=== PATIENT | female | born 1960 | race Caucasian/White ===

== ENCOUNTER 2019-08-09 19:29 | Inpatient (IN) | payer OTHER, SELFPAY ==
[2019-08-09] VITALS (29 sets, daily range): BP systolic 99–166; BP diastolic 65–101; PULSE 90–108; RESP 15–36; TEMP 36.6; O2SAT 88–100; BMI 28.3
--- NOTE | 2019-08-09 19:35 | XR_ITS ---
WS: [id number] PORTABLE CHEST HISTORY: Dyspnea COMPARISON: 09/13/2008 Lungs are clear and well expanded. No pleural effusion or pneumothorax. Cardiac size: Normal. Mediastinum/Aorta: Normal mediastinum. Mild RIGHT convex curvature thoracolumbar junction. XR/XR chest 1V portable [id number] IMPRESSION: Unremarkable portable chest.
--- NOTE | 2019-08-09 19:37 | ECG_ITS ---
Measurements Intervals [place] Rate: 94 P: 83 MO: 168 QRS: 72 QRSD: 82 T: 72 QT: 418 QTc: 523 SINUS RHYTHM VOLTAGE CRITERIA FOR LVH [MEETS CRITERIA IN ONE OF: R(aVL), S(V1), R(V5), R (V5/V6)+S(V1)] NONSPECIFIC T-WAVE ABNORMALITY PROLONGED QT INTERVAL Compared to ECG 08/09/2019 19:49:10 Prolonged QT interval now present T-wave abnormality still present Electronically Signed On 08-11-2019 14:50:21 CDT by Parag Carrillo M.D. [id number]
--- NOTE | 2019-08-09 19:44 | W.ED.GENADLT ---
HPI - General Adult General: Chief complaint: Upper Respiratory Infection Stated complaint: resp.distress Time Seen by Provider: 08/09/19 19:32 Source: EMS Mode of arrival: EMS Limitations: no limitations History of Present Illness: HPI narrative: Blayne is a 59-year-old female who comes in by EMS with a report of cough and increased shortness of breath. Symptoms have been going on for the past 2 to 3 days. Patient was noted by EMS to be extremely tachypneic with a respiratory rate in the 60s. She was given Ativan, nebulizer and Solu-Medrol and she is markedly better. She did complain of bilateral tingling in her upper extremities with this. That sensation has resolved. Patient does describe chest tightness but does not describe any other cardiac related findings such as radiation of her symptoms, diaphoresis, nausea or vomiting. Patient states she has increased sputum production and color change to her sputum. She denies any fever. COVID screening was negative. Otherwise not tried anything for this at home but the nebulizer did help in route. Associated symptoms: Reports chest pain; Deny confusion, diaphoresis, headache(s), malaise, nausea, rash, palpitations, syncope or vomiting Review of Systems Const: Denies: fever(s), chills, body aches, fatigue, malaise or diaphoresis Eyes: Denies: change in vision, blurry vision, blind spots or photophobia ENMT: Denies: throat pain, odynophagia, hoarseness, swelling of lips/tongue, ear or mastoid pain, ear discharge, change in hearing or nasal discharge Card: Reports: chest pain; Denies: palpitations, irregular heart rhythm, edema, lightheadedness, syncope, pre-syncope, dyspnea on exertion or orthopnea Resp: Reports: productive cough and wheezing; Denies: non-productive cough, hemoptysis or chest congestion GI: Denies: abdominal pain, nausea, vomiting, hematemesis, coffee ground emesis, heartburn, diarrhea, constipation, GI cramping, hematochezia or melena : Denies: flank pain, dysuria, urinary frequency, urinary urgency or hematuria Musc: Denies: neck pain, back pain, extremity pain, extremity swelling, joint pain, joint swelling, joint redness, joint warmth or joint stiffness Skin/Breast: Denies: rash, pruritus, erythema, skin tenderness or jaundice Neuro: Denies: headache(s), numbness in extremities, weakness in extremities, sensory changes, lack of coordination, difficulty walking, dizziness, vertigo, confusion or Slurred speech present Fabian/Lymph: Denies: easy bruising, easy bleeding, petechiae, purpura or enlarged lymph nodes All/Imm: Denies: urticaria, throat swelling, tongue swelling, facial swelling or acute wheezing PFSH ED PFSH: Medical History COPD (chronic obstructive pulmonary disease) Gastroenteritis GERD (gastroesophageal reflux disease) Hypertension Smoker Surgical History History of carpal tunnel surgery Family History (Updated 08/09/19 @ 23:38 by Tk Morrison MD) Other Hypertension Denies family history of Lung disease Social History (Updated 08/09/19 @ 23:38 by Tk Morrison MD) Smoking and tobacco status: heavy tobacco smoker cigarettes [ Other cigarette details: Half pack a day for last 30 years ] Alcohol intake: current Alcohol type: beer Alcohol use comment: 3 to 4 cans a day Substance/Drug Use: never Household members: family Housing: House Physical Exam Const: COMMON NORMALS: no acute distress, patient oriented x3, no limitations, healthy appearing and well nourished GENERAL APPEARANCE: cooperative, well kempt and well developed HENMT: COMMON NORMALS: normocephalic, atraumatic, external ears normal, EAC's normal and Normal external nose present HEAD & SCALP: normal to inspection, normocephalic and atraumatic FACE & SINUS: normal facial exam and face symmetric NOSE: Normal external nose present and Normal nares present EXTERNAL EAR: Yes external ears normal EXTERNAL AUDITORY CANAL: EAC's normal MOUTH: Normal oral and palatal mucosa present, lip normal and tongue normal Eye: COMMON NORMALS: Equal, round and reactive pupils present and conjunctivae normal GENERAL EYE: appearance normal, both eyes and all related structures ALIGNMENT: Yes alignment normal PERIORBITAL: periorbital findings normal EYELID: eyelids normal CONJUNCTIVA: Yes conjunctivae normal SCLERA: sclerae normal PUPIL: Yes Equal, round and reactive pupils present Neck/C-Spine: COMMON NORMALS: full ROM, no lymphadenopathy, supple, no meningeal signs and no JVD GENERAL: Yes normal visual inspection and Yes trachea midline Chest: COMMONS NORMALS: normal inspection of the chest and normal palpation of entire chest wall Resp: COMMON NORMALS: No retractions and No use of accessory muscles EFFORT & INSPECTION: Yes symmetric chest movement, Yes labored and Yes grunting AUSCULTATION: no crackles, no rales, rhonchi and wheezes Cardio: COMMON NORMALS: no JVD, regular rate, regular rhythm, S1 normal heart sound present and S2 normal heart sound present RATE: regular rate RHYTHM: regular rhythm HEART SOUNDS: S1 normal heart sound present, S2 normal heart sound present, no click, no gallops, no murmurs, no rubs and abnormal split S2 GI: COMMON NORMALS: Soft to palpation and No hepatosplenomegaly present PALPATION: Yes Soft to palpation, No Tenderness to palpation present (GI), No Guarding due to palpation present (GI), No Rigid due to palpation, Yes No hepatosplenomegaly present, No Hernia present, No Palpable mass present and No Pulsatile mass present : COMMON NORMALS: Yes no CVA tenderness BLADDER/KIDNEY EXAM: Yes no CVA tenderness EXTERNAL FEMALE EXAM: No Hernia present Back/Pelvis: COMMON NORMALS: no CVA tenderness, thoracic and lumbar spine normal to inspection, no thoracic nor lumbar tenderness and thoraco-lumbar ROM normal Extremity: COMMON NORMALS: normal to inspection, full ROM, capillary refill normal, no joint enlargement, no clubbing, cyanosis or edema and no calf tenderness Neuro: COMMON NORMALS: patient oriented x3, CN's II-XII intact bilaterally, moves all extremities, no focal motor deficits and no sensory deficits noted MENINGEAL SIGNS: Yes no meningeal signs SPEECH: speech normal Psych: COMMON NORMALS: mental status grossly normal, Normal thought process present, cooperative, normal affect, speech normal and activity/motor behavior normal APPEARANCE: Yes well kempt SPEECH: Yes normal speech THOUGHT PROCESS: Normal thought process present Skin: COMMON NORMALS: no rashes or lesions noted, turgor normal, no jaundice, no petechiae and no mottling GENERAL SKIN EXAM: no rashes or lesions noted and turgor normal Course Vital Signs: Vital signs: Vital Signs Temperature 97.7 F 08/10/19 00:30 Pulse Rate 109 H 08/10/19 00:30 Respiratory Rate 20 H 08/10/19 00:30 Blood Pressure 170/92 08/10/19 00:30 Pulse Oximetry 94 06/12/20 00:30 MDM - General Adult MDM Narrative: Medical decision making narrative: Latesha is a nice 59-year-old female who comes in after having what was believed to be a COPD exacerbation. She had a markedly increased respiratory rate and was given Ativan, DuoNeb and Solu-Medrol by EMS. As time is gone on here the patient's become more more somnolent. Repeat ABG shows acidosis but she is not particularly hypercapnic. I believe this is likely secondary to the Ativan. Nonetheless I do not think she is safe for discharge at this point. I have reviewed the case in full with Dr. Morrison and he agrees to come and evaluate the patient. We will add a head CT and a CTA of the chest per his request. The patient did not respond to Narcan given IV. Patient was ultimately admitted by Dr. Morrison. CTA of her chest and her head were normal. Patient did not smell of alcohol but her blood alcohol level did come back significantly elevated. I believe the combination of the alcohol and Ativan caused the patient's increased somnolence. Lab Data: Labs: Lab Results 08/09/19 08/09/19 08/09/19 Range/Units 19:48 19:48 19:48 WBC 10.3 H (4.0-10.0) 10^3/ uL RBC 4.25 (4.1-5.3) 10^6/u L Hgb 13.1 (11.5-15.3) g/dL Hct 39.3 (37.0-47.0) % MCV 92.5 (81-99) fL MCH 30.8 (28.0-34.0) pg MCHC 33.3 (30.0-36.0) g/dL RDW 11.9 L (12.1-15.1) % Plt Count 224 (130-400) 10^3/c mm MPV 10.4 (7.4-10.4) fL Neut % (Auto) 61.5 % Lymph % (Auto) 27.2 % [place] % (Auto) 8.1 % Eos % (Auto) 2.6 % Baso % (Auto) 0.3 % Neut # (Auto) 6.3 (1.8-7.7) 10^3/u L Lymph # (Auto) 2.8 (0.8-4.8) 10^3/u L [place] # (Auto) 0.8 (0.2-0.9) 10^3/u L Eos # (Auto) 0.3 (0.0-0.8) 10^3/u L Baso # (Auto) 0.0 (0.0-0.1) 10^3/u L Nucleated RBC % (a uto) 0 % Nucleated RBCs # 0.0 /100WBC Specimen Type Sample Site ABG pH (7.35-7.45) ABG pCO2 (35-45) mmHg ABG pO2 (80.0-100.0) mmH g ABG HCO3 (22-26) mmol/L ABG Base Excess (-2.0-2.0) mmol/ L Beck Test Hematocrit (37-47) % O2 Delivery Device FiO2 % Account Services Coordinator ID Sodium 129 L (136-145) mmol/L Potassium 3.6 (3.5-5.1) mmol/L Chloride 92 L (98-107) mmol/L Carbon Dioxide 20 L (22-29) mmol/L Anion Gap 20.6 H (5-19) BUN 9 (6-20) mg/dL Creatinine 0.5 (0.5-0.9) mg/dL GFR Calculation 126.3 (90-130) mL/min Glucose 93 (65-115) mg/dL Calculated Osmolal ity 264 L (285-295) mOsm/k g Lactic Acid 2.5 H (0.5-2.2) mmol/L Calcium 9.0 (8.5-10.5) mg/dL Magnesium 1.9 (1.7-2.3) mg/dL Total Bilirubin 0.5 (0.15-1.2) mg/dL AST 23 (0-32) U/L ALT 24 (0-33) U/L Alkaline Phosphata se 125 H (35-105) IU/L Troponin T Baselin e (0-10) ng/L Troponin T 120 Min [place] (0-10) ng/L Delta Troponin T (0-10) ABS# NT-Pro-B Natriuret Pep 328 H (0-125) pg/mL Total Protein 6.9 (6.6-8.7) g/dL Albumin 4.6 (3.5-5.2) g/dL Globulin 2.3 (1.3-4.6) g/dL TSH (0.27-4.20) uIU/ mL Urine Color (Yellow) Urine Appearance (CLEAR) Urine pH (5-7) Ur Specific Gravit y (1.005-1.030) Urine Protein (Negative) Urine Glucose (UA) (Normal) Urine Ketones (Negative) Urine Blood (Negative) Urine Nitrate (Negative) Urine Bilirubin (NEGATIVE) Urine Urobilinogen (Negative) mg/dL Ur Leukocyte Elvira ase (Negative) Urine RBC (0-2) /hpf Urine WBC (0-5) /hpf Ur Squamous Epith Cells (0-5) Urine Bacteria (NONE) Ethyl Alcohol (0-10) mg/dL 08/09/19 08/09/19 08/09/19 Range/Units 19:48 19:48 19:48 WBC (4.0-10.0) 10^3/ uL RBC (4.1-5.3) 10^6/u L Hgb (11.5-15.3) g/dL Hct (37.0-47.0) % MCV (81-99) fL MCH (28.0-34.0) pg MCHC (30.0-36.0) g/dL RDW (12.1-15.1) % Plt Count (130-400) 10^3/c mm MPV (7.4-10.4) fL Neut % (Auto) % Lymph % (Auto) % [place] % (Auto) % Eos % (Auto) % Baso % (Auto) % Neut # (Auto) (1.8-7.7) 10^3/u L Lymph # (Auto) (0.8-4.8) 10^3/u L [place] # (Auto) (0.2-0.9) 10^3/u L Eos # (Auto) (0.0-0.8) 10^3/u L Baso # (Auto) (0.0-0.1) 10^3/u L Nucleated RBC % (a uto) % Nucleated RBCs # /100WBC Specimen Type Sample Site ABG pH (7.35-7.45) ABG pCO2 (35-45) mmHg ABG pO2 (80.0-100.0) mmH g ABG HCO3 (22-26) mmol/L ABG Base Excess (-2.0-2.0) mmol/ L Beck Test Hematocrit (37-47) % O2 Delivery Device FiO2 % Account Services Coordinator ID Sodium (136-145) mmol/L Potassium (3.5-5.1) mmol/L Chloride (98-107) mmol/L Carbon Dioxide (22-29) mmol/L Anion Gap (5-19) BUN (6-20) mg/dL Creatinine (0.5-0.9) mg/dL GFR Calculation (90-130) mL/min Glucose (65-115) mg/dL Calculated Osmolal ity (285-295) mOsm/k g Lactic Acid (0.5-2.2) mmol/L Calcium (8.5-10.5) mg/dL Magnesium (1.7-2.3) mg/dL Total Bilirubin (0.15-1.2) mg/dL AST (0-32) U/L ALT (0-33) U/L Alkaline Phosphata se (35-105) IU/L Troponin T Baselin e 28 H (0-10) ng/L Troponin T 120 Min [place] (0-10) ng/L Delta Troponin T (0-10) ABS# NT-Pro-B Natriuret Pep (0-125) pg/mL Total Protein (6.6-8.7) g/dL Albumin (3.5-5.2) g/dL Globulin (1.3-4.6) g/dL TSH 1.53 (0.27-4.20) uIU/ mL Urine Color (Yellow) Urine Appearance (CLEAR) Urine pH (5-7) Ur Specific Gravit y (1.005-1.030) Urine Protein (Negative) Urine Glucose (UA) (Normal) Urine Ketones (Negative) Urine Blood (Negative) Urine Nitrate (Negative) Urine Bilirubin (NEGATIVE) Urine Urobilinogen (Negative) mg/dL Ur Leukocyte Elvira ase (Negative) Urine RBC (0-2) /hpf Urine WBC (0-5) /hpf Ur Squamous Epith Cells (0-5) Urine Bacteria (NONE) Ethyl Alcohol 216 H (0-10) mg/dL 08/09/19 08/09/19 08/09/19 Range/Units 20:00 21:00 21:37 WBC (4.0-10.0) 10^3/ uL RBC (4.1-5.3) 10^6/u L Hgb (11.5-15.3) g/dL Hct (37.0-47.0) % MCV (81-99) fL MCH (28.0-34.0) pg MCHC (30.0-36.0) g/dL RDW (12.1-15.1) % Plt Count (130-400) 10^3/c mm MPV (7.4-10.4) fL Neut % (Auto) % Lymph % (Auto) % [place] % (Auto) % Eos % (Auto) % Baso % (Auto) % Neut # (Auto) (1.8-7.7) 10^3/u L Lymph # (Auto) (0.8-4.8) 10^3/u L [place] # (Auto) (0.2-0.9) 10^3/u L Eos # (Auto) (0.0-0.8) 10^3/u L Baso # (Auto) (0.0-0.1) 10^3/u L Nucleated RBC % (a uto) % Nucleated RBCs # /100WBC Specimen Type Arterial Sample Site Radial, right ABG pH 7.36 (7.35-7.45) ABG pCO2 37.3 (35-45) mmHg ABG pO2 133.0 H (80.0-100.0) mmH g ABG HCO3 21.0 L (22-26) mmol/L ABG Base Excess -4.0 L (-2.0-2.0) mmol/ L Beck Test Pos Hematocrit 39.9 (37-47) % O2 Delivery Device None FiO2 21.0 % Account Services Coordinator ID [email or web address] Sodium (136-145) mmol/L Potassium (3.5-5.1) mmol/L Chloride (98-107) mmol/L Carbon Dioxide (22-29) mmol/L Anion Gap (5-19) BUN (6-20) mg/dL Creatinine (0.5-0.9) mg/dL GFR Calculation (90-130) mL/min Glucose (65-115) mg/dL Calculated Osmolal ity (285-295) mOsm/k g Lactic Acid (0.5-2.2) mmol/L Calcium (8.5-10.5) mg/dL Magnesium (1.7-2.3) mg/dL Total Bilirubin (0.15-1.2) mg/dL AST (0-32) U/L ALT (0-33) U/L Alkaline Phosphata se (35-105) IU/L Troponin T Baselin e (0-10) ng/L Troponin T 120 Min [place] 25.10 H (0-10) ng/L Delta Troponin T -2.90 L (0-10) ABS# NT-Pro-B Natriuret Pep (0-125) pg/mL Total Protein (6.6-8.7) g/dL Albumin (3.5-5.2) g/dL Globulin (1.3-4.6) g/dL TSH (0.27-4.20) uIU/ mL Urine Color Straw (Yellow) Urine Appearance Clear (CLEAR) Urine pH 5 (5-7) Ur Specific Gravit y 1.005 (1.005-1.030) Urine Protein Neg (Negative) Urine Glucose (UA) Norm (Normal) Urine Ketones Negative (Negative) Urine Blood Neg (Negative) Urine Nitrate Negative (Negative) Urine Bilirubin Neg (NEGATIVE) Urine Urobilinogen Norm (Negative) mg/dL Ur Leukocyte Elvira ase Negative (Negative) Urine RBC None (0-2) /hpf Urine WBC None (0-5) /hpf Ur Squamous Epith Cells 0-4 H (0-5) Urine Bacteria Trace (NONE) Ethyl Alcohol (0-10) mg/dL 08/09/19 Range/Units 22:05 WBC (4.0-10.0) 10^3/ uL RBC (4.1-5.3) 10^6/u L Hgb (11.5-15.3) g/dL Hct (37.0-47.0) % MCV (81-99) fL MCH (28.0-34.0) pg MCHC (30.0-36.0) g/dL RDW (12.1-15.1) % Plt Count (130-400) 10^3/c mm MPV (7.4-10.4) fL Neut % (Auto) % Lymph % (Auto) % [place] % (Auto) % Eos % (Auto) % Baso % (Auto) % Neut # (Auto) (1.8-7.7) 10^3/u L Lymph # (Auto) (0.8-4.8) 10^3/u L [place] # (Auto) (0.2-0.9) 10^3/u L Eos # (Auto) (0.0-0.8) 10^3/u L Baso # (Auto) (0.0-0.1) 10^3/u L Nucleated RBC % (a uto) % Nucleated RBCs # /100WBC Specimen Type Arterial Sample Site Brachial, left ABG pH 7.34 L (7.35-7.45) ABG pCO2 38.3 (35-45) mmHg ABG pO2 70.2 L (80.0-100.0) mmH g ABG HCO3 20.4 L (22-26) mmol/L ABG Base Excess -5.0 L (-2.0-2.0) mmol/ L Beck Test Pos Hematocrit 39.3 (37-47) % O2 Delivery Device None FiO2 21.0 % Account Services Coordinator ID [email or web address] Sodium (136-145) mmol/L Potassium (3.5-5.1) mmol/L Chloride (98-107) mmol/L Carbon Dioxide (22-29) mmol/L Anion Gap (5-19) BUN (6-20) mg/dL Creatinine (0.5-0.9) mg/dL GFR Calculation (90-130) mL/min Glucose (65-115) mg/dL Calculated Osmolal ity (285-295) mOsm/k g Lactic Acid (0.5-2.2) mmol/L Calcium (8.5-10.5) mg/dL Magnesium (1.7-2.3) mg/dL Total Bilirubin (0.15-1.2) mg/dL AST (0-32) U/L ALT (0-33) U/L Alkaline Phosphata se (35-105) IU/L Troponin T Baselin e (0-10) ng/L Troponin T 120 Min [place] (0-10) ng/L Delta Troponin T (0-10) ABS# NT-Pro-B Natriuret Pep (0-125) pg/mL Total Protein (6.6-8.7) g/dL Albumin (3.5-5.2) g/dL Globulin (1.3-4.6) g/dL TSH (0.27-4.20) uIU/ mL Urine Color (Yellow) Urine Appearance (CLEAR) Urine pH (5-7) Ur Specific Gravit y (1.005-1.030) Urine Protein (Negative) Urine Glucose (UA) (Normal) Urine Ketones (Negative) Urine Blood (Negative) Urine Nitrate (Negative) Urine Bilirubin (NEGATIVE) Urine Urobilinogen (Negative) mg/dL Ur Leukocyte Elvira ase (Negative) Urine RBC (0-2) /hpf Urine WBC (0-5) /hpf Ur Squamous Epith Cells (0-5) Urine Bacteria (NONE) Ethyl Alcohol (0-10) mg/dL Imaging Data^: CXR: My impression: No acute cardiopulmonary findings. EKG Data^: EKG 1: Attestation: I personally reviewed and interpreted this EKG as follows: EKG interpretation date: 08/09/19 EKG interpretation time: 19:49 Interpretation: Normal sinus rhythm at 94 beats a minute, no blocks, normal intervals, normal axis, LVH, no acute ST or T wave changes. Poor R wave progression. Computer generated interpretation: Head CT 08/09/19 22:21 IMPRESSION: Negative for intracranial hemorrhage or mass effect Radiation Dose CTDIVOL = (mGy): DLP = 836.28 (mGy-cm) Chest CTA 08/09/19 22:35 IMPRESSION: 1. Question of mild bronchitis 2. No acute infiltrates 3. No evidence of pulmonary embolism 4. Possible gastritis. Radiation Dose CTDIVOL = (mGy): DLP = 583.84 (mGy-cm) Discharge Plan Discharge Patient Disposition: Placed in Observation Admit Provider: Tk Morrison Clinical Impression: Acute alteration in mental status, Acute exacerbation of chronic obstructive pulmonary disease Condition: Stable Discharge Date/Time: 08/10/19 00:24 Coding Level of Care Code ED Frog Catcher for Chg Fwd Exam Comprehensive
[2019-08-09 19:54] LABS: Basophils % 0.3 %; Eosinophils # 0.3 10^3/uL (0.0-0.8); Eosinophils % 2.6 %; Hematocrit 39.3 % (37.0-47.0); Hemoglobin 13.1 g/dL (11.5-15.3); Lymphocytes # 2.8 10^3/uL (0.8-4.8); Lymphocytes % 27.2 %; Mean Corpuscular HGB Conc 33.3 g/dL (30.0-36.0); Mean Corpuscular Hemoglobin 30.8 pg (28.0-34.0); Mean Corpuscular Volume 92.5 fL (81-99); Mean Platelet Volume 10.4 fL (7.4-10.4); Monocytes # 0.8 10^3/uL (0.2-0.9); Monocytes % 8.1 %; Neutrophils # 6.3 10^3/uL (1.8-7.7); Neutrophils % 61.5 %; Nucleated Red Blood Cells % 0 %; Platelet Count 224 10^3/cmm (130-400); Red Blood Count 4.25 10^6/uL (4.1-5.3); Red Cell Distribution Width 11.9 % (12.1-15.1); White Blood Count 10.3 10^3/uL (4.0-10.0)
[2019-08-09] MEDS: ipratropium-albuterol 3 mL Neb 9 ML INHALATION (19:58)
[2019-08-09 20:10] LABS: ABG PCO2 37.3 mmHg (35-45); ABG PH Result 7.36 (7.35-7.45); Arterial Blood Gas Hematocrit 39.9 % (37-47); Blood Gas Allen Test Pos; Blood Gas Sample Site Radial, right; Blood Gas Sample Type Arterial
[2019-08-09 20:13] LABS: Lactic Sepsis W/Reflex 2.5 mmol/L (0.5-2.2)
[2019-08-09 20:25] LABS: Alanine Aminotransferase 24 U/L (0-33); Albumin Level 4.6 g/dL (3.5-5.2); Alkaline Phosphatase 125 IU/L (35-105); Anion Gap 20.6 (5-19); Blood Urea Nitrogen 9 mg/dL (6-20); Carbon Dioxide 20 mmol/L (22-29); Chloride 92 mmol/L (98-107); Globulin 2.3 g/dL (1.3-4.6); Glomerular Filtration Rate 126.3 mL/min (90-130); Glucose 93 mg/dL (65-115); Magnesium 1.9 mg/dL (1.7-2.3); NT Pro B Type Natriuretic Pept 328 pg/mL (0-125); Osmolality Calculated 264 mOsm/kg (285-295); Potassium 3.6 mmol/L (3.5-5.1); Sodium 129 mmol/L (136-145); Total Bilirubin 0.5 mg/dL (0.15-1.2); Total Protein 6.9 g/dL (6.6-8.7)
[2019-08-09 20:28] LABS: Aspartate Amino Transferase 23 U/L (0-32)
[2019-08-09 20:42] LABS: Troponin(5th) Baseline 28 ng/L (0-10)
[2019-08-09 21:22] LABS: Bilirubin Urine Neg (NEGATIVE); Blood Urine Neg (Negative); Glucose Urine UA Norm (Normal); Ketones Urine Negative (Negative); Leukocyte Esterase Urine Negative (Negative); Nitrate Urine Negative (Negative); Protein Urine Neg (Negative); Specific Gravity, Urine 1.005 (1.005-1.030); Urine Appearance Clear (CLEAR); Urine Color Straw (Yellow); Urobilinogen Urine Norm (Negative); pH Urine 5 (5-7)
[2019-08-09 21:33] LABS: Bacteria Urine TRACE; Squamous Epithelial Cell Urine 0-4 (0-5)
[2019-08-09 21:34] LABS: Add Urine Culture? No
--- NOTE | 2019-08-09 21:37 | ECG_ITS ---
Measurements Intervals [place] Rate: 94 P: 78 [place]: 160 QRS: 72 QRSD: 84 T: 53 QT: 377 QTc: 474 SINUS RHYTHM MODERATE VOLTAGE CRITERIA FOR LVH, CONSIDER NORMAL VARIANT [MEETS CRITERIA IN ONE OF: R(aVL), S(V1), R(V5), R(V5/V6)+S(V1)] NONSPECIFIC T-WAVE ABNORMALITY No previous ECG available for comparison Electronically Signed On 08-09-2019 21:05:23 CDT by Parag Carrillo M.D. [id number]
[2019-08-09 22:17] LABS: ABG PCO2 38.3 mmHg (35-45); ABG PH Result 7.34 (7.35-7.45); Arterial Blood Gas Hematocrit 39.3 % (37-47); Blood Gas Allen Test Pos; Blood Gas Sample Site Brachial, left; Blood Gas Sample Type Arterial; HCO3 ABG 20.4 mmol/L (22-26); PO2 ABG 70.2 mmHg (80.0-100.0)
--- NOTE | 2019-08-09 22:21 | CTR_ITS ---
PROCEDURE INFORMATION: Exam: CT Head Without Contrast Exam date and time: 08/09/2019 10:54 PM Age: 59 years old Clinical indication: Altered mental status/memory loss; Additional info: AMS TECHNIQUE: Imaging protocol: Computed tomography of the head without contrast. Radiation optimization: All CT scans at this facility use at least one of these dose optimization techniques: automated exposure control; mA and/or kV adjustment per patient size (includes targeted exams where dose is matched to clinical indication); or iterative reconstruction. COMPARISON: No relevant prior studies available. RADIATION DOSE METRICS: Total DLP: 836.28 mGy-cm FINDINGS: Brain: Apparent bilateral thalamic chronic lacunar infarcts Ventricles: Normal. No ventriculomegaly. Bones/joints: Unremarkable. No acute fracture. Sinuses: Paranasal sinus partial opacification. Mastoid air cells: Visualized mastoid air cells are well aerated. Soft tissues: Unremarkable. CT/CT head wo con* [id number] IMPRESSION: Negative for intracranial hemorrhage or mass effect Radiation Dose CTDIVOL = (mGy): DLP = 836.28 (mGy-cm)
[2019-08-09] MEDS: naloxone 0.4 mg/ml SDV IVP (22:27)
--- NOTE | 2019-08-09 22:35 | CTR_ITS ---
PROCEDURE INFORMATION: Exam: CT Angiography Chest With Contrast Exam date and time: 08/09/2019 10:54 PM Age: 59 years old Clinical indication: Shortness of breath; Additional info: Dyspnea TECHNIQUE: Imaging protocol: Computed tomographic angiography of the chest with intravenous contrast. 3D rendering: MIP and/or 3D reconstructed images were created by the technologist. Radiation optimization: All CT scans at this facility use at least one of these dose optimization techniques: automated exposure control; mA and/or kV adjustment per patient size (includes targeted exams where dose is matched to clinical indication); or iterative reconstruction. Contrast material: OMNI 350; Contrast volume: 90 ml; Contrast route: 20G; COMPARISON: No relevant prior studies available. RADIATION DOSE METRICS: Total DLP: 583.84 mGy-cm FINDINGS: Pulmonary arteries: There is no evidence of filling defects within the pulmonary arterial circulation to suggest pulmonary embolism. Aorta: There is no aortic aneurysm or dissection. Lungs: No focal infiltrate is identified. Pleural space: Unremarkable. No pneumothorax. No pleural effusion. Heart: Unremarkable. No cardiomegaly. No pericardial effusion. Mediastinal space: A moderate hiatal hernia is present. Lymph nodes: Unremarkable. No enlarged lymph nodes. Stomach and bowel: There is moderate thickening of the gastric mucosa which could represent some nonspecific gastritis. Correlation with clinical findings is suggested. There is mild bronchial wall thickening of the central bronchi on both sides which may represent some bronchitis. Correlation with clinical findings is suggested. Bones/joints: Unremarkable. No acute fracture. Soft tissues: Unremarkable. CT/CT angio chest PE protcl [id number] IMPRESSION: 1. Question of mild bronchitis 2. No acute infiltrates 3. No evidence of pulmonary embolism 4. Possible gastritis. Radiation Dose CTDIVOL = (mGy): DLP = 583.84 (mGy-cm)
--- NOTE | 2019-08-09 22:36 | PM.HP ---
Providers/Chief Complaint Chief Complaint: resp.distress History of Present Illness Latesha Piper is a 59 year old female who carries a history of COPD secondary to cigarette smoking, GERD, hypertension came in with chief complaint of respiratory stress. Patient does not have established care with any PCP. She is stating that she was in her usual state of health until 2 to 3 weeks ago when she started experiencing intermittent diarrhea, she has not eaten from outside, no recent traveling or camping, she has not used any antibiotics, her diarrhea is intermittent, she has not spiked any fever at home, she has been feeling dehydrated. She was getting more lethargic, she was getting dyspnea on exertion she did not notice any orthopnea, PND, chest pain nausea or vomiting. She suffered from sinusitis and nasal congestion few weeks ago that resolved. Today she started experiencing shortness of breath at rest. There were audible wheezing, family called EMS, EMS gave her 1 mg of Ativan, 125 mg of Solu-Medrol, 1 dose of DuoNeb. She was tachypneic her resting rate was in 40s. By the time she came to the ER she was not tachypneic at all, she was drowsy, she was not really waking up to verbal commands, I ordered blood alcohol level which came high. Patient is stating that she recently quit smoking on last Tuesday, she drinks couple of cans of beer every night. At the time of my evaluation she has normal hemodynamics, she is arousable to verbal command and able to give me above-mentioned details. Her GCS is 15, alert oriented x3 Blood alcohol level 216, She just came back from CT room after getting CT head and CTA chest Blood gases showing normal blood gas without any decompensation Chest x-ray does not show any infiltrates Review of Systems Const: Reports: chills, body aches and fatigue; Denies: fever(s) Eyes: Denies: change in vision ENMT: Denies: throat pain Card: Denies: chest pain Resp: Reports: dyspnea and productive cough (Chronic sputum production white to yellow-green) GI: Reports: diarrhea; Denies: abdominal pain or nausea : Denies: flank pain or difficulty voiding Musc: Denies: neck pain Skin/Breast: Denies: rash Neuro: Denies: headache(s) Psych: Reports: sleeping more Endo: Denies: polyuria Fabian/Lymph: Denies: easy bruising All/Imm: Denies: urticaria Medications/Allergies Home Medications Medication Instructions Recorded Confirmed Last Taken Type albuterol sulfate 90 mcg/actuation 2 puff INHALATION Q6H PRN #8.5 gm 07/09/19 08/09/19 08/09/19 Rx aerosol inhaler aspirin [Aspirin Low Dose] 81 mg PO DAILY 08/09/19 08/09/19 08/09/19 History guaifenesin [Mucinex] 600 mg PO Q12H PRN 08/09/19 08/09/19 08/09/19 History ibuprofen 200 mg PO Q6H PRN 08/09/19 08/09/19 08/09/19 History Allergies Allergy/AdvReac Type Severity Reaction Status Date / Time No Known Allergies Allergy Verified 08/09/19 20:20 PFSH Acute PFSH: Medical History COPD (chronic obstructive pulmonary disease) Gastroenteritis GERD (gastroesophageal reflux disease) Hypertension Smoker Surgical History History of carpal tunnel surgery Family History (Updated 08/09/19 @ 23:38 by Tk Morrison MD) Other Hypertension Denies family history of Lung disease Social History (Updated 08/09/19 @ 23:38 by Tk Morrison MD) Smoking and tobacco status: heavy tobacco smoker cigarettes [ Other cigarette details: Half pack a day for last 30 years ] Alcohol intake: current Alcohol type: beer Alcohol use comment: 3 to 4 cans a day Substance/Drug Use: never Household members: family Housing: House Vitals/I&O/Wt Last Vital Signs Temp 97.8 F 08/09/19 19:30 Pulse 95 08/09/19 21:35 Resp 22 H 08/09/19 21:35 BP 110/73 08/09/19 21:35 Pulse Ox 91 08/09/19 21:35 Weight last 48 hrs Weight 63.503 kg Physical Exam Narrative: EXAM NARRATIVE: Head to toe examination Patient was arousable to verbal command initially She was very drowsy when I entered the room but woke up to painful stimuli and was very pleasant, alert oriented x3 GCS 15 able to give me above-mentioned detail S1, S2 no tachycardia She is not tachypneic, no active respiratory distress No active wheezing, good bilateral breath sounds Abdomen soft nontender nondistended bowel sound present No neurological deficit Skin does not show any sign ischemia gangrene ulcer Does not look dehydrated at all EOMI, PERRLA Data : 08/09/19 19:48 08/09/19 19:48 A&P Assessment and plan (1) Alcohol intoxication: Status: Acute (2) Acute alteration in mental status: Status: Acute (3) Hyponatremia: Status: Acute (4) Diarrhea: Status: Acute Additional A&P Information Altered mental status secondary to alcohol intoxication Thiamine folic acid No active respiratory distress Patient currently is awake alert GCS 15 able to protect airway No active restaurant distress She drinks beer every day COPD without active exacerbation Do not see any pneumonia on chest x-ray, no infiltrates, No active wheezing She only has albuterol inhaler at home, does not have a PCP establish She would need Lama and Laba combination on discharge Hyponatremia Patient is endorsing diarrhea for the last 2 to 3 weeks We will check C. difficile panel Serum and urine osmolarity, urine sodium level I believe this is secondary to dehydration, will start her on normal saline Full code VT prophylaxis Cardiac diet Attestations Medical Necessity Statement*: Anticipating discharge in less than 48 hours currently need overnight monitoring because of her altered mental status secondary to alcohol tox Acacian, Time Spent in Patient Care: (>than 50% of time spent in counselling and/or direct pt care on unit). 50 Coding Level of Care Code Acute Rail Switch Operator for Christian Enrique Diagnoses Alcohol intoxication F10.929 Acute alteration in mental status R41.82 Hyponatremia E87.1 Diarrhea R19.7
[2019-08-09 23:22] LABS: Alcohol Level 216 mg/dL (0-10)
[2019-08-09] MEDS: iohexol 350 mg/mL 100 mL Btl IV (23:27)
[2019-08-10] VITALS (20 sets, daily range): BP systolic 121–200; BP diastolic 76–129; PULSE 95–126; RESP 15–28; TEMP 36.2–37; O2SAT 92–97
[2019-08-10] MEDS: enoxaparin 40 mg/0.4 mL Syringe SUBCUT (00:49)
[2019-08-10] MEDS: sodium chloride 0.9% 1,000 ML 75 ML IV ×2 (00:49→13:15)
[2019-08-10 01:30] LABS: Thyroid Stimulating Hormone 1.53 uIU/mL (0.27-4.20)
--- NOTE | 2019-08-10 01:37 | ECG_ITS ---
Measurements Intervals [place] Rate: 109 P: 65 SD: 172 QRS: 51 QRSD: 82 T: 54 QT: 364 QTc: 491 SINUS TACHYCARDIA MODERATE VOLTAGE CRITERIA FOR LVH, CONSIDER NORMAL VARIANT [MEETS CRITERIA IN ONE OF: R(aVL), S(V1), R(V5), R(V5/V6)+S(V1)] POSSIBLE ANTERIOR MYOCARDIAL INFARCTION [30 ms Q WAVE IN V3/V4, OR R < 0.2 mV IN V4], OF INDETERMINATE AGE Compared to ECG 08/09/2019 19:49:10 Myocardial infarct finding now present Sinus rhythm no longer present T-wave abnormality no longer present Electronically Signed On 08-11-2019 15:17:29 CDT by Parag Carrillo M.D. [email or web address]
[2019-08-10] MEDS: ipratropium-albuterol 3 mL Neb INHALATION ×4 (05:13→20:40)
[2019-08-10 05:20] LABS: Hematocrit 38.7 % (37.0-47.0); Hemoglobin 13.1 g/dL (11.5-15.3); Lymphocytes # 0.4 10^3/uL (0.8-4.8); Lymphocytes % 7.3 %; Mean Corpuscular HGB Conc 33.9 g/dL (30.0-36.0); Mean Corpuscular Hemoglobin 31.4 pg (28.0-34.0); Mean Corpuscular Volume 92.8 fL (81-99); Mean Platelet Volume 10.8 fL (7.4-10.4); Monocytes % 0.8 %; Neutrophils # 4.5 10^3/uL (1.8-7.7); Neutrophils % 91.3 %; Nucleated Red Blood Cells % 0 %; Platelet Count 233 10^3/cmm (130-400); Red Blood Count 4.17 10^6/uL (4.1-5.3); White Blood Count 4.9 10^3/uL (4.0-10.0)
[2019-08-10 05:35] LABS: Blood Urea Nitrogen 6 mg/dL (6-20); Calcium 9.3 mg/dL (8.5-10.5); Carbon Dioxide 22 mmol/L (22-29); Chloride 100 mmol/L (98-107); Creatinine Clr Calc Pharmacy 151.8119; Glomerular Filtration Rate 163.4 mL/min (90-130); Glucose 145 mg/dL (65-115); Osmolality Calculated 278 mOsm/kg (285-295); Sodium 135 mmol/L (136-145)
[2019-08-10 06:24] LABS: Urine Random Sodium 22 mmol/L
--- NOTE | 2019-08-10 09:39 | PC.CHAP ---
Pastoral Care Encounter/Spiritual Assessment Type of Contact [] Declined oracle financials developer visit [] Patient/Family/Request visit [] Outpatient visit [] Follow-up visit [] Physician referral [] Code/Alert [x] Routine visit [] Staff referral [] Actively dying [] Patient sleeping [] Family support [] [] Out of room [] Palliative care [] [] Receiving care in room [] Pre-surgical visit [] Trauma [] Long length of stay [] ICU visit [] Other: Relational/Emotional Strength [] Patient feels connected with others/family/visitors/staff [] Distress [] Loneliness/isolation [] Abandonment Spirituality of Patient [] Person of [place] [] Attends Baptism of their [place] [] Believes in Prayer [] Reads Bible or Faith materials [] There are Spiritual issues to be addressed Weight Loss Sales Consultant Interventions [x] Prayer [] Active listening [] Non-anxious presence [] Spiritual/emotional support [] Crisis/trauma care [] Spiritual counseling [] Bereavement support [] Provided bereavement packet [] Provided Bible/devotional materials [] Provided toy/stuffed animal, coloring book to patient or family member [] Provided Communion [] Anointing/[place] [] Salvation [x] Completed spiritual assessment [] Other: Impact on Illness or Injury [] Angry [] Fearful [] Anxious [] Often cries [] Exhaustion [] Unable to work [] Unable to attend caodaism [] Unable to walk/stand [] Unable to read [] Unable to drive [] Unable to eat/drink [] Unable to sleep [] Unable to be with family [] Patient intubated [] Other: Summary Patient resting better. Breathing better Time spent with patient 10min
--- NOTE | 2019-08-10 10:06 | PM.PN ---
Subjective Subjective: Interval history: Patient seen and examined, sitting up in bed, noted dyspnea on exertion, audibly wheezing, noted to be hypertensive overnight though blood pressure is better this morning, tachycardic. No bowel movements yet today. Currently on room air. 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 Medications: Reviewed: Yes Medication Review Details: Active Medications Generic Name Dose Route Start Last Admin Trade Name Freq PRN Reason Stop Dose Admin Albuterol/Ipratrop ium 3 ml 08/10/19 00:28 08/10/19 05:13 Duoneb INHALATION 3 ml Q6H.RESPIRATORY P RN Administration SHORTNESS OF MG TH Aspirin 81 mg 08/10/19 09:00 Aspirin Ec PO DAILY [facility] Azithromycin 500 mg 08/10/19 09:00 Zithromax PO DAILY [facility] Protocol Enoxaparin Sodium 40 mg 08/10/19 00:28 08/10/19 00:49 Lovenox SUBCUT 40 mg Q24H BESSY Administration Folic Acid 1 mg 08/10/19 09:00 Folic Acid PO DAILY [facility] Guaifenesin 1,200 mg 08/10/19 10:05 Mucinex PO BID [facility] Sodium Chloride 1,000 mls @ 75 ml s/hr 08/10/19 00:28 08/10/19 00:49 Sodium Chloride 0.9% IV 75 mls/hr .[id number] BESSY Administration Lorazepam 2 mg 08/10/19 10:04 Ativan IM PROTOCOL PRN ALCOWD Protocol Lorazepam 2 mg 08/10/19 10:04 Ativan PO PROTOCOL PRN WITHDRAWAL Protocol Multivitamins Ther apeutic 1 tab 08/10/19 10:05 Multivitamin Tab PO DAILY [facility] Pantoprazole Sodiu m 20 mg 08/10/19 09:00 Protonix PO DAILY [facility] Prednisone 40 mg 08/10/19 10:05 Prednisone PO DAILY [facility] Thiamine Mononitra te 100 mg 08/10/19 09:00 Vitamin B-1 PO DAILY [facility] No Known Allergies Allergy (Verified 08/09/19 20:20) Vitals/I&O/Wt Last Vital Signs Temp 98.6 F 08/10/19 08:00 Pulse 102 H 08/10/19 08:26 Resp 16 08/10/19 08:26 BP 136/76 06/12/20 08:00 Pulse Ox 93 08/10/19 08:26 08/09/19 08/10/19 08/10/19 22:59 06:59 14:59 Intake Total 240 / 240 Output Total 400 / 400 Balance -400 / -400 240 / 240 Weight last 48 hrs Weight 63.503 kg Physical Exam Const: COMMON NORMALS: no acute distress and patient oriented x3 GENERAL APPEARANCE: cooperative, comfortable and appears older than stated age ORIENTATION/CONSCIOUSNESS: Yes awake OTHER: -Somewhat ill-appearing HENMT: COMMON NORMALS: normocephalic, atraumatic, hearing grossly normal bilaterally and moist oral mucous membranes HEAD & SCALP: normocephalic and atraumatic Eye: COMMON NORMALS: Equal, round and reactive pupils present, EOMs intact bilaterally and conjunctivae normal CONJUNCTIVA: Yes conjunctivae normal PUPIL: Yes Equal, round and reactive pupils present Neck/C-Spine: COMMON NORMALS: full ROM GENERAL: Yes normal visual inspection and Yes trachea midline Chest: CHEST: Yes Symmetrical chest wall rise Resp: COMMON NORMALS: No retractions and No use of accessory muscles EFFORT & INSPECTION: Yes able to speak in complete sentences, Yes symmetric chest movement, No tachypneic, Yes Actively coughing non-productive and other (coarse) and Yes audible wheezes AUSCULTATION: rhonchi and wheezes OTHER: -on RA Cardio: COMMON NORMALS: regular rhythm, S1 normal heart sound present, S2 normal heart sound present and No murmurs present (Cardio) RATE: tachycardic RHYTHM: regular rhythm HEART SOUNDS: S1 normal heart sound present and S2 normal heart sound present GI: COMMON NORMALS: Normal to inspection, nondistended, normoactive bowel sounds present, Soft to palpation and non-tender PALPATION: Yes Soft to palpation Extremity: COMMON NORMALS: normal to inspection, full ROM, no clubbing, cyanosis or edema and no pedal edema Neuro: COMMON NORMALS: patient oriented x3, moves all extremities, no focal motor deficits, no sensory deficits noted and gait normal Psych: COMMON NORMALS: mental status grossly normal, Normal thought process present, cooperative, normal affect and speech normal SPEECH: Yes normal speech THOUGHT PROCESS: Normal thought process present Skin: COMMON NORMALS: no rashes or lesions noted, no jaundice, no petechiae and no mottling GENERAL SKIN EXAM: no rashes or lesions noted Data : 08/10/19 04:20 06/12/20 04:20 A&P Assessment and plan (1) Acute exacerbation of chronic obstructive pulmonary disease: -Given increased shortness of breath, increased frequency in cough and sputum production she has acute COPD exacerbation likely triggered by bronchitis -Imaging reviewed including chest x-ray, CT the latter of which is negative for PE -Start on steroids, already on neb treatments and azithromycin -Continue to monitor respiratory status -ABG noted with hypoxia -Supplemental oxygen as needed, may require home oxygen evaluation prior to discharge -We will need addition of repeat inhaler treatments on discharge -recently quit smoking -seen at [facility] about a month ago and started on ProAir -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 and 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; isolation precautions -will also screen for influenza Status: Acute (2) Alcohol intoxication: -EtOH level-216 on admission -[facility] protocol -MVI, folate, thiamine daily -fall, aspiration, seizure precautions Status: Acute Qualifiers: Complication of substance-induced condition: uncomplicated Qualified Code(s): F10.920 - Alcohol use, unspecified with intoxication, uncomplicated (3) Acute alteration in mental status: -likely secondary to acute alcohol intoxication as well as hypoxia due to acute COPD exacerbation -mental status at baseline Status: Resolved (4) Diarrhea: -likely gastroenteritis, detailed in visit to [facility] a month ago -r/o C.difficile -on contact isolation precautions Status: Acute Qualifiers: Diarrhea type: unspecified type Qualified Code(s): R19.7 - Diarrhea, unspecified (5) Hyponatremia: Status: Resolved Additional A&P Information -GI ppx with PPI -DVT ppx with Lovenox -regular diet as tolerated -Dispo: home -Code status: FULL code -change to inpatient status due to need for continued respiratory status monitoring, [facility] protocol Attestations Medical Necessity Statement*: Patient requires hospitalization for continued treatment of acute COPD exacerbation requiring continued monitoring of respiratory status as well monitoring for alcohol withdrawal. Time Spent in Patient Care: Greater than 35 minutes (>than 50% of time spent in counselling and/or direct pt care on unit). Coding Level of Care Code Acute Meeting Manager for Christian Enrique Diagnoses Acute exacerbation of chronic obstructive pulmonary disease J44.1 Alcohol intoxication F10.920 Complication of substance-induced condition: uncomplicated Acute alteration in mental status R41.82 Diarrhea R19.7 Diarrhea type: unspecified type Hyponatremia E87.1
[2019-08-10] MEDS: thiamine 100 mg Tablet PO (10:09)
[2019-08-10] MEDS: azithromycin 250 mg Tablet 500 MG PO (10:09)
[2019-08-10] MEDS: aspirin 81 mg EC Tablet PO (10:09)
[2019-08-10] MEDS: pantoprazole DR 40 mg Tablet 20 MG PO (10:09)
[2019-08-10] MEDS: folic acid 1 mg Tablet PO (10:09)
[2019-08-10] MEDS: predniSONE 20 mg Tablet 40 MG PO (10:14)
[2019-08-10] MEDS: multivitamin therapeutic Tablet 1 TAB PO (10:14)
[2019-08-10] MEDS: guaiFENesin 600 mg Tablet 1200 MG PO ×2 (10:14→17:18)
[2019-08-10] MEDS: LORazepam 2 mg Tablet PO (10:28)
--- NOTE | 2019-08-10 11:52 | PC.RESP ---
Smoking Cessation and Pulmonary Rehab information and a schedule of classes sent to patient.
[2019-08-10 12:42] LABS: Influenza A by IFA Negative (Negative); Influenza B by IFA Negative (Negative)
[2019-08-11] VITALS (7 sets, daily range): BP systolic 171–181; BP diastolic 95–99; PULSE 71–95; RESP 18–20; TEMP 36.3–36.6; O2SAT 81–99
[2019-08-11] MEDS: guaiFENesin-codeine UDC 10 mL 5 ML PO (00:15)
[2019-08-11] MEDS: enoxaparin 40 mg/0.4 mL Syringe SUBCUT (00:15)
[2019-08-11] MEDS: sodium chloride 0.9% 1,000 ML 75 ML IV (03:46)
[2019-08-11] MEDS: ipratropium-albuterol 3 mL Neb INHALATION (05:32)
[2019-08-11] MEDS: pantoprazole DR 40 mg Tablet 20 MG PO (09:05)
[2019-08-11] MEDS: thiamine 100 mg Tablet PO (09:06)
[2019-08-11] MEDS: folic acid 1 mg Tablet PO (09:06)
[2019-08-11] MEDS: predniSONE 20 mg Tablet 40 MG PO (09:06)
[2019-08-11] MEDS: guaiFENesin 600 mg Tablet 1200 MG PO (09:06)
[2019-08-11] MEDS: aspirin 81 mg EC Tablet PO (09:06)
[2019-08-11] MEDS: multivitamin therapeutic Tablet 1 TAB PO (09:06)
[2019-08-11] MEDS: azithromycin 250 mg Tablet 500 MG PO (09:06)
--- NOTE | 2019-08-11 09:48 | PM.DCS ---
Discharge Providers Date of Admission: 08/10/19 10:05 Date of Discharge: August 11, 2019 Attending Provider at Admission: Tk Morrison MD Attending Provider at Discharge: Aurora Geiger MD Primary Care Provider: DOCTOR NOT ON FILE Diagnoses at Discharge Discharge Diagnosis (1) Acute exacerbation of chronic obstructive pulmonary disease: Status: Acute Problem details: -Given increased shortness of breath, increased frequency in cough and sputum production she has acute COPD exacerbation likely triggered by bronchitis -Imaging reviewed including chest x-ray, CT the latter of which is negative for PE -on steroids, already on neb treatments and azithromycin -Continue to monitor respiratory status -ABG noted with hypoxia -Supplemental oxygen as needed, may require home oxygen evaluation prior to discharge -We will need addition of repeat inhaler treatments on discharge -recently quit smoking -seen at [facility] about a month ago and started on ProAir -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 and 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 and this is negative; off isolation precautions -negative for influenza (2) Alcohol intoxication: Status: Resolved Problem details: -EtOH level-216 on admission -[facility] protocol -MVI, folate, thiamine daily -fall, aspiration, seizure precautions Qualifiers: Complication of substance-induced condition: uncomplicated Qualified Code(s): F10.920 - Alcohol use, unspecified with intoxication, uncomplicated (3) Acute alteration in mental status: Status: Resolved Problem details: -likely secondary to acute alcohol intoxication as well as hypoxia due to acute COPD exacerbation -mental status at baseline (4) Diarrhea: Status: Acute Problem details: -likely gastroenteritis, detailed in visit to [facility] a month ago -stool studies negative including C.difficile -on contact isolation precautions Qualifiers: Diarrhea type: unspecified type Qualified Code(s): R19.7 - Diarrhea, unspecified (5) Hyponatremia: Status: Resolved Reason for Visit Reason for Visit: resp.distress Hospital Course Hospital Course: Patient was admitted to the medical surgical floor and started on empiric, nebulizer treatments and steroids for treatment of acute COPD exacerbation. Secondary to her symptoms and occupation she was tested for COVID-19. Influenza screen was negative. She had also presented with complaints of several bouts of diarrhea, stool studies negative including C. difficile. She was found to be acutely intoxicated on admission, placed on [facility] protocol with noted improvement in her mental status. She has been maintained primarily on room air and is not oxygen dependent at baseline. She is to continue azithromycin and prednisone for the next 3 days to complete a short treatment course. She is advised to seek medical attention immediately should her symptoms worsen. Smoking cessation as well as alcohol cessation are both strongly recommended. Discharge Summary: -Patient to follow-up with primary care provider on 08/14/2019 as scheduled. Physical Exam Const: COMMON NORMALS: no acute distress and patient oriented x3 GENERAL APPEARANCE: cooperative, comfortable and appears older than stated age ORIENTATION/CONSCIOUSNESS: Yes awake OTHER: -Somewhat ill-appearing HENMT: COMMON NORMALS: normocephalic, atraumatic, hearing grossly normal bilaterally and moist oral mucous membranes HEAD & SCALP: normocephalic and atraumatic Eye: COMMON NORMALS: Equal, round and reactive pupils present, EOMs intact bilaterally and conjunctivae normal CONJUNCTIVA: Yes conjunctivae normal PUPIL: Yes Equal, round and reactive pupils present Neck/C-Spine: COMMON NORMALS: full ROM GENERAL: Yes normal visual inspection and Yes trachea midline Chest: CHEST: Yes Symmetrical chest wall rise Resp: COMMON NORMALS: No retractions and No use of accessory muscles EFFORT & INSPECTION: Yes able to speak in complete sentences, Yes symmetric chest movement and No tachypneic AUSCULTATION: rhonchi and wheezes OTHER: -on RA Cardio: COMMON NORMALS: regular rhythm, S1 normal heart sound present, S2 normal heart sound present and No murmurs present (Cardio) RATE: tachycardic RHYTHM: regular rhythm HEART SOUNDS: S1 normal heart sound present and S2 normal heart sound present GI: COMMON NORMALS: Normal to inspection, nondistended, normoactive bowel sounds present, Soft to palpation and non-tender PALPATION: Yes Soft to palpation Extremity: COMMON NORMALS: normal to inspection, full ROM, no clubbing, cyanosis or edema and no pedal edema Neuro: COMMON NORMALS: patient oriented x3, moves all extremities, no focal motor deficits, no sensory deficits noted and gait normal Psych: COMMON NORMALS: mental status grossly normal, Normal thought process present, cooperative, normal affect and speech normal SPEECH: Yes normal speech THOUGHT PROCESS: Normal thought process present Skin: COMMON NORMALS: no rashes or lesions noted, no jaundice, no petechiae and no mottling GENERAL SKIN EXAM: no rashes or lesions noted Discharge Data Data Completed and Pending: Completed Studies During Hospitalization Category Date Time Status CT angio chest PE protcl [id number] Stat Cat Scan 08/09/19 22:[address] head wo con* 7 [id number] Stat Cat Scan 08/09/19 22:21 Completed XR chest 1V fly ble [id number] Stat Exams 08/09/19 19:35 Completed Pending at discharge Category Date Time Status Helicobacter Pylo ri AG Stool Routin e Lab 08/10/19 13:35 Received Osmolality Urine Stat Lab 08/10/19 05:00 Received Labs from last 24 hours 08/10/19 11:12 Influenza Type A A g Negative Influenza Type B A g Negative Vitals: Last Vital Signs Temp 97.4 F L 08/11/19 07:58 Pulse 71 08/11/19 07:58 Resp 18 08/11/19 07:58 BP 181/99 08/11/19 07:58 Pulse Ox 99 08/11/19 07:58 Discharge Plan Discharge Patient Disposition: Home, Self-Care Condition: Stable Prescriptions: New azithromycin 250 mg Tablet 500 mg PO DAILY 3 Days Qty: 6 RF: 0 prednisone 20 mg Tablet 40 mg PO DAILY 3 Days Qty: 6 RF: 0 Thera 400 mcg Tablet 1 tab PO DAILY 30 Days Qty: 30 RF: 0 Combivent Respimat 20-100 mcg/actuation mist 1 puff INHALATION Q6H Qty: 4 RF: 0 Continued albuterol sulfate [ProAir HFA] 90 mcg/actuation HFA aerosol inhaler 2 puff INHALATION Q6H PRN (Reason: shortness of breath or wheezing) Qty: 8.5 RF: 0 Aspirin Low Dose 81 mg Tablet,Delayed Release (Dr/Ec) 81 mg PO DAILY RF: 0 ibuprofen 200 mg Tablet 200 mg PO Q6H PRN (Reason: pain/fever) RF: 0 Mucinex 600 mg Tablet Extended Release 12hr 600 mg PO Q12H PRN (Reason: cough/congestion) RF: 0 Discharge Orders: Discharge Order (Routine); Ordered 08/09/19 Ordered By: Rosita Leigh Referrals: DEBBIE GONZALEZ FNP [Referring] - 08/14/19 10:00 am (Please bring your insurance cards and medications in their original bottles. Copayment will be due at time of visit. You have an appointment with Debbie on August 13 at 10:00am.) Discharge Diet: Regular Discharge Activity: Increase activity as tolerated Activity Restrictions/Additional Instructions: -Please seek medical attention immediately if symptoms worsen Discharge Attestations Time Spent in Discharge Care*: greater than 30 min Specific Discharge Activities: Specific discharge activities: educating patient, discussing with case operator/social workers/dc planners, documenting/other paperwork and evaluating patient/reviewing data Status at Discharge: Cognitive status at discharge: cognitively intact, Behavioral status at discharge: cooperative, Functional status at discharge: independent ambulation Overall status at discharge: patient is progressing back to baseline Quality Metrics Clinical Quality Measures During this hospital stay, did patient experience: None Coding Level of Care Code Acute [employer] Fire Support Planner for [facility] Fwd Exam Comprehensive Diagnoses Acute exacerbation of chronic obstructive pulmonary disease J44.1 Alcohol intoxication F10.920 Complication of substance-induced condition: uncomplicated Acute alteration in mental status R41.82 Diarrhea R19.7 Diarrhea type: unspecified type Hyponatremia E87.1
[2019-08-11] MEDS: amlodipine 5 mg Tablet PO (10:35)
[2019-08-11 11:45] LABS: Coronavirus Lab Test PTC SEE REPORT
[2019-08-13 15:11] LABS: Osmolality Urine 252 mOsm/kg (50-1200)
== END 2019-08-11 15:29 | disposition home or self-care (01) | DRG 191 ==
LOC: ER 22:55 → MEDSURG 08-10 00:06
PROVIDERS: Emergency Medicine; Admitting Provider Internal Medicine; Visit Provider Family Medicine
DX: J44.1 Chronic obstructive pulmonary disease with (acute) exacerbation (principal); E87.1 Hypo-osmolality and hyponatremia; R19.7 Diarrhea, unspecified; F10.129 Alcohol abuse with intoxication, unspecified; Y90.7 Blood alcohol level of 200-239 mg/100 ml; Z91.81 History of falling; Z20.828 Contact with and (suspected) exposure to other viral communicable diseases; Z79.82 Long term (current) use of aspirin; K21.9 Gastro-esophageal reflux disease without esophagitis; I10 Essential (primary) hypertension; F17.211 Nicotine dependence, cigarettes, in remission
CPT/HCPCS: 12345; 36415; 36600; 70450; 71045; 71275; 80048; 80053; 80307; 81001; 82803; 83605; 83735; 83880; 83935; 84300; 84443; 84484; 85025; 87338; 87493; 87506; 87635; 87804; 93005; 94640; 96372; 99284; G0378; J1650; J2310; J7030; J7512; Q0144; Q9967

== ENCOUNTER 2019-08-12 16:01 | Emergency (ER) | payer SELFPAY ==
[2019-08-12 16:11] VITALS: BP 177/108; PULSE 73; RESP 18; TEMP 37.1; O2SAT 100; BMI 39.4
--- NOTE | 2019-08-12 17:15 | ED_ITS ---
HPI - SOB/Dyspnea General: Chief Complaint: Shortness of Breath/Dyspnea Stated Complaint: sob Time Seen by Provider: 08/12/19 17:15 Source: patient Mode of arrival: ambulatory Limitations: no limitations History of Present Illness: HPI Narrative: pt has been trying to stop drinking having breakthrough anxiety, patient appears well. patient appears in no pain pt has also not been able to get medication azithromycin and prednisone for COPD exacerbation MD elicited complaint: anxiety Review of Systems General: Reports: 10 or more systems reviewed and unremarkable except in HPI and below Psych: Reports: anxiety PFSH ED PFSH: Medical History COPD (chronic obstructive pulmonary disease) Gastroenteritis GERD (gastroesophageal reflux disease) Hypertension Smoker Surgical History History of carpal tunnel surgery Family History (Updated 08/09/19 @ 23:38 by Tk Morrison MD) Other Hypertension Denies family history of Lung disease Social History (Updated 08/09/19 @ 23:38 by Tk Morrison MD) Smoking and tobacco status: former smoker Alcohol intake: current Alcohol type: beer Household members: family Housing: House Physical Exam Const: COMMON NORMALS: no acute distress and patient oriented x3 GENERAL APPEARANCE: cooperative HENMT: COMMON NORMALS: normocephalic, TM's normal bilaterally and Normal external nose present HEAD & SCALP: normal to inspection and normocephalic NOSE: Normal external nose present TYMPANIC MEMBRANE: TM's normal bilaterally MOUTH: Normal oral and palatal mucosa present Eye: GENERAL EYE: appearance normal, both eyes and all related structures Neck/C-Spine: COMMON NORMALS: full ROM Chest: COMMONS NORMALS: normal inspection of the chest Resp: COMMON NORMALS: normal respiratory effort EFFORT & INSPECTION: Yes able to speak in complete sentences Cardio: COMMON NORMALS: regular rate and regular rhythm RATE: regular rate RHYTHM: regular rhythm GI: COMMON NORMALS: non-tender Back/Pelvis: COMMON NORMALS: thoracic and lumbar spine normal to inspection Extremity: COMMON NORMALS: normal to inspection Neuro: COMMON NORMALS: patient oriented x3 and moves all extremities Psych: COMMON NORMALS: mental status grossly normal and cooperative Skin: COMMON NORMALS: no rashes or lesions noted GENERAL SKIN EXAM: no rashes or lesions noted Course Vital Signs: Vital signs: Vital Signs Temperature 98.7 F 08/12/19 16:11 Pulse Rate 73 08/12/19 16:11 Respiratory Rate 18 08/12/19 16:11 Blood Pressure 177/108 08/12/19 16:11 Pulse Oximetry 100 08/12/19 16:11 MDM - SOB/Dyspnea MDM Narrative: Medical decision making narrative: patient comes in for anxiety and inability to start medication prescribed for COPD exacerbation. Exam notes normal vital signs, normal SaO2, lungs decreased in bases. Patient does appear anxious. DDX includes but no limited to COPD, anxiety, alcohol withdrawal. Reviewed exam with patient and need for f/u. Patient reports understanding, Will prescribe lorazepam for twice a day dosing as needed for anxiety for alcohol withdrawal, and given a dose of antibiotic and steroid for presciption that was not filled. Discharge Plan Discharge Patient Disposition: Home, Self-Care Clinical Impression: Alcohol abuse with alcohol-induced disorder COPD (chronic obstructive pulmonary disease) Qualifiers: COPD type: unspecified COPD Qualified Code(s): J44.9 - Chronic obstructive pulmonary disease, unspecified Condition: Stable Prescriptions: New lorazepam 0.5 mg tablet 0.5 mg PO Q12H PRN (Reason: anxiety) Qty: 10 RF: 0 No Action albuterol sulfate [ProAir HFA] 90 mcg/actuation HFA aerosol inhaler 2 puff INHALATION Q6H PRN (Reason: shortness of breath or wheezing) Qty: 8.5 RF: 0 Aspirin Low Dose 81 mg Tablet,Delayed Release (Dr/Ec) 81 mg PO DAILY RF: 0 ibuprofen 200 mg Tablet 200 mg PO Q6H PRN (Reason: pain/fever) RF: 0 Mucinex 600 mg Tablet Extended Release 12hr 600 mg PO Q12H PRN (Reason: cough/congestion) RF: 0 azithromycin 250 mg Tablet 500 mg PO DAILY 3 Days Qty: 6 RF: 0 prednisone 20 mg Tablet 40 mg PO DAILY 3 Days Qty: 6 RF: 0 Thera 400 mcg Tablet 1 tab PO DAILY 30 Days Qty: 30 RF: 0 Combivent Respimat 20-100 mcg/actuation mist 1 puff INHALATION Q6H Qty: 4 RF: 0 amlodipine 5 mg Tablet 5 mg PO DAILY 30 Days Qty: 30 RF: 0 Discharge Orders: Discharge Order (Routine); Ordered 08/12/19 Ordered By: Jed Tucker Discharge Diet: Usual diet Discharge Activity: Increase activity as tolerated Patient Instructions: Abuse of Alcohol (ED) Activity Restrictions/Additional Instructions: continue working to cessation of drinking. healthy diet, stop smoking, follow-up with primary care in one week. return to ER for worsening symptoms Stand Alone Forms: Work/School Release Coding Level of Care Code ED Behavioral Health Case Manager for Christian Fwd Exam Comprehensive
[2019-08-12] MEDS: azithromycin 250 mg Tablet 500 MG PO (18:08)
[2019-08-12] MEDS: predniSONE 20 mg Tablet 40 MG PO (18:08)
[2019-08-12] MEDS: LORazepam 1 mg Tablet 0.5 MG PO (18:08)
[2019-08-12 18:09] VITALS: BP 108/65; PULSE 68; RESP 17; O2SAT 97
== END 2019-08-12 18:10 | disposition home or self-care (01) ==
PROVIDERS: Emergency Provider Nurse Practitioner Family
DX: J44.9 Chronic obstructive pulmonary disease, unspecified (principal); F10.19 Alcohol abuse with unspecified alcohol-induced disorder
CPT/HCPCS: 12345; 99281; 99283; J7512; Q0144

== ENCOUNTER 2020-07-11 08:23 | Outpatient (CLI) | payer BC, SELFPAY ==
--- NOTE | 2020-07-11 08:32 | MM_ITS ---
WS: [id number] SCREENING DIGITAL MAMMOGRAM WITH CAD HISTORY: SCREENING COMPARISON: None available. Bilateral CC and MLO views submitted. Computer aided detection analyzed. Breast composition: There are scattered areas of fibroglandular density. No suspicious masses, microc alcifications or architectural distortion. MM/[place] [id number] IMPRESSION: BI-RADS: 1-Negative FOLLOW UP: 1 Year Follow-up
== END 2020-07-11 08:24 | disposition home or self-care (01) ==
LOC: RADSHAW 08:27
PROVIDERS: PCP Internal Medicine; Visit Provider Internal Medicine
DX: Z12.31 Encounter for screening mammogram for malignant neoplasm of breast (principal)
CPT/HCPCS: 77067

== ENCOUNTER 2020-07-16 10:52 | Day surgery (SDC) | payer BC, SELFPAY ==
[2020-07-14 13:54] VITALS: BMI 25.7
[2020-07-16] MEDS: sodium chloride 0.9% 1,000 ML 30 ML IV (11:57)
--- NOTE | 2020-07-16 11:57 | ANES.PREANE2 ---
Pre-Anesthetic Assessment Pre-Anesthetic Assessment: Height/Weight: Height 1.52 m Weight 59.874 kg Proposed Procedure: Operation Date: 07/16/20 12:30 Proposed Procedures p Colonoscopy 74837 Z12.11(Not Applicable) - Walt Waldron MD Was Beta Mitch taken within 24 hours: N/A Was Clonidine taken within 24 hours: N/A Last intake: Intake Last Liquid Date 07/15/20 Last Liquid Time 23:00 Last Solid Date 07/14/20 Last Solid Time 12:00 Social: Social History: Tobacco and No alcohol Exam: Pre-Anes Outpt Exam: alert, oriented x 3 and regular rate & rhythm Airway: Submandibular: WNL Cervical ROM: WNL MP: 2 Dentition: Full Pulmonary: Pulmonary: COPD CV/HEM: CV/HEM: HTN GI: GI: GERD Anesthetic Plan: ASA status: 3 Anesthesia: MAC Risk of > 500 ml blood loss (7ml/kg in children): No PFSH Anesthesia PFSH: Medical History COPD (chronic obstructive pulmonary disease) Gastroenteritis GERD (gastroesophageal reflux disease) Hypertension Smoker Surgical History History of carpal tunnel surgery Family History (Updated 08/09/19 @ 23:38 by Tk Morrison MD) Other Hypertension Denies family history of Lung disease Social History (Updated 08/09/19 @ 23:38 by Tk Morrison MD) Smoking and tobacco status: former smoker Alcohol intake: current Alcohol type: beer Household members: family Housing: House Data Anesthesia Cardiac Studies: No Data to Display
--- NOTE | 2020-07-16 12:15 | W.PM.OPSFHP ---
Same Day Surgery H&P Indication for Procedure/HPI DATE OF PROCEDURE: July 16, 2020 CHIEF COMPLAINT/INDICATIONFOR SURGICAL PROCEDURE: Screening colonoscopy PREOP DIAGNOSIS: Screening colonoscopy PLANNED PROCEDRUE: Operation Date: 07/16/20 12:30 Proposed Procedures p Colonoscopy 48589 Z12.11(Not Applicable) - Walt Waldron MD This is a pleasant 60 years old female patient referred to my practice for screening colonoscopy as the patient never had one before. Denies bleeding per rectum or history of colon cancer. ROS All systems have been reviewed negative except as per the above or per problem list. Medications/Allergies* Home Medications Medication Instructions Recorded Confirmed Type aspirin [Aspirin Low Dose] 81 mg PO DAILY 08/09/19 07/14/20 History guaifenesin [Mucinex] 600 mg PO Q12H PRN 08/09/19 07/16/20 History ibuprofen 200 mg PO Q6H PRN 08/09/19 07/16/20 History amlodipine 5 mg tablet 5 mg PO DAILY 06/12/20 07/16/20 History lisinopril 20 mg tablet 20 mg PO DAILY 06/12/20 07/16/20 History hydroxyzine HCl 10 mg PO TID PRN 07/14/20 07/16/20 History Allergies/Adverse Reactions Allergy/AdvReac Type Severity Reaction Status Date / Time No Known Allergies Allergy Verified 07/16/20 11:29 Current Medications: Generic Name Dose Route Start Last Admin Trade Name Freq PRN Reason Stop Dose Admin Sodium Chloride 1,000 mls @ 30 mls/hr 07/16/20 11:15 07/16/20 11:57 Sodium Chloride 0.9% IV 07/17/20 11:14 30 mls/hr .Q24H BESSY Administration Pertinent History/Comorbid Conditions* Medical History COPD (chronic obstructive pulmonary disease) Gastroenteritis GERD (gastroesophageal reflux disease) Hypertension Smoker Surgical History (Updated 08/09/19 @ 22:46 by Tk Morrison MD) History of carpal tunnel surgery Family History (Updated 08/09/19 @ 23:38 by Tk Morrison MD) Hypertension Denies family history of Lung disease Social History Smoking and tobacco status: former smoker Alcohol intake: current Alcohol type: beer Household members: family Housing: House Pertinent Exam Findings alert, oriented x 3, clear to auscultation bilaterally, regular rate & rhythm and procedure specific exam findings (Abdominal examination nontender nondistended soft) Recommendations Surgery/Procedure today (Screening colonoscopy) Other Plans: Plan of care; After thorough history and physical examination and reviewing the chart, plan to perform screening colonoscopy. I discussed with the patient in details the risks,benefits,alternatives and indications.The risk of aspiration, bleeding, soft tissue injury, perforation of the colon and other potential concomitant complications were explained to the patient in details,also the potential need for Laproscoy/Laparotomy to repair any related complications including but not limited to colectomy and or Closotomy.The patient understood this well and did agree to proceed. Rationale was carefully and clearly discussed with the patient.Appropriate informed consent have been reviewed and signed All questions have been answered and all concerns have been addressed to patient's satisfaction. Verbal and written Instructions were given to the patient for colonoscopy prep Coding Level of Care Code Acute Business Planning Manager for Christian Enrique
[2020-07-16 14:09] VITALS: BP 104/63; PULSE 95; RESP 16; TEMP 36.6; O2SAT 98
[2020-07-16 14:22] VITALS: BP 117/87; PULSE 109; RESP 16; TEMP 36.2; O2SAT 99
--- NOTE | 2020-07-16 15:37 | ANE.PACU2 ---
Inpatient post-anesthesia follow up: Airway intact: Yes Vital signs: Temperature 97.1 F Pulse Rate 109 Respiratory Rate 16 Blood Pressure 117/87 Pulse Oximetry 99 Oxygen Delivery Me thod Room Air Oxygen Flow Rate 3 Fraction of Inspir ed Oxygen Hydration adequate: Yes Nausea and vomiting: No Pain level: 1 Mental status: Baseline
== END 2020-07-16 14:39 | disposition home or self-care (01) ==
PROVIDERS: PCP Internal Medicine; Visit Provider Surgery
PROC: 0DJD8ZZ Inspection of Lower Intestinal Tract, Via Natural or Artificial Opening Endoscopic (ICD-10-PCS; CPT 45378; principal; 2020-07-16 12:30)
DX: Z12.11 Encounter for screening for malignant neoplasm of colon (principal); D12.4 Benign neoplasm of descending colon; D12.8 Benign neoplasm of rectum; Z79.82 Long term (current) use of aspirin; J44.9 Chronic obstructive pulmonary disease, unspecified; K21.9 Gastro-esophageal reflux disease without esophagitis; I10 Essential (primary) hypertension; F17.210 Nicotine dependence, cigarettes, uncomplicated; Z82.49 Family history of ischemic heart disease and other diseases of the circulatory system
CPT/HCPCS: 45385; 88305; 96360; 96361; J2704; J7030

== ENCOUNTER 2020-12-08 09:14 | Observation (INO) | payer BC, SELFPAY ==
[2020-12-08] VITALS (8 sets, daily range): BP systolic 118–218; BP diastolic 68–150; PULSE 0–146; RESP 15–18; TEMP 36.2; O2SAT 50–100; BMI 26.3
--- NOTE | 2020-12-08 09:20 | CT_ITS ---
WS: [id number] CT HEAD NONCONTRAST HISTORY: AMS, GCS 3 TECHNIQUE: Contiguous axial imaging performed through the brain in 2.5 mm imaging. Bone and soft tiss ue windows. Sagittal and coronal reformats reviewed. All CT scans at [facility] use at least one of these dose optimization techniques: automated exposure control; mA and/or kV adjustment per pa tient size (includes targeted exams where dose is matched to clinical indication); or iterative recon struction. DLP: 986.11 mGy-cm. COMPARISON: 08/09/2019 There is a very large amount of intraventricular hemorrhage. There is acute blood filling a large por tion of the lateral ventricles and extending through the third ventricle into the occipital horns and posterior horns. Blood extends through the fourth ventricle and fills the basilar cisterns. No signi ficant amount of midline shift. Large amount of acute blood centered within the RIGHT basal ganglia with extension into the ventricle s. Mild diffuse chronic microvascular ischemic disease otherwise. Paranasal sinuses: As visualized are clear. Mastoid air cells: Well pneumatized. Calvarium and scalp: Skull is intact with no soft tissue edema or swelling. CT/CT head wo con* [id number] IMPRESSION: 1. Large amount of acute intraventricular hemorrhage. 2. Suspect the intraventricular hemorrhage is secondary to a hemorrhagic RIGHT basal ganglia stroke with direct extension into the ventricles. Notified Karan Barrera DO at 12/08/2020 9:42 AM.
--- NOTE | 2020-12-08 09:20 | XR_ITS ---
WS: [id number] PORTABLE CHEST HISTORY: dyspnea/cough COMPARISON: 08/09/2019 Endotracheal tube terminates in the proximal RIGHT mainstem bronchus. Partial atelectasis at the LEFT lung base. No pleural effusion or pneumothorax. Cardiac size: Normal. Mediastinum/Aorta: Mild atherosclerosis aorta. Mild osteopenia. XR/XR chest 1V portable [id number] IMPRESSION: 1. Endotracheal tube terminates in the proximal RIGHT mainstem bronchus and sh ould be retracted 3 cm. 2. Partial atelectasis at the LEFT lung base. Notified Karan Barrera DO at 12/08/2020 9:44 AM.
--- NOTE | 2020-12-08 09:21 | ECG_ITS ---
[facility] Test Date: 2020-12-08 Pat Name: Latesha Piper Department: Room: Gender: Female Mold Stacker: : 1960 Requested By: Karan Nix Order Number: [id number] Ellyn MD: David Hall M.D. Measurements Intervals Byron Rate: 136 P: 77 PA: 145 QRS: 65 QRSD: 90 T: 89 QT: 286 QTc: 432 Interpretive Statements SINUS TACHYCARDIA NONSPECIFIC T-WAVE ABNORMALITY Compared to ECG 08/10/2019 02:55:10 T-wave abnormality now present Myocardial infarct finding no longer present Electronically Signed On 12-08-2020 14:23:46 CDT by David Hall M.D. [id number]
--- NOTE | 2020-12-08 09:42 | W.ED.NEUROSD ---
HPI - Neuro Symptoms/Deficit General: Chief Complaint: Neuro Symptoms/Deficit Stated Complaint: POSS STROKE, PT INTUBATED Time Seen by Provider: 12/08/20 09:19 History of Present Illness: HPI Narrative: 60-year-old female presents emergency room acute intubated. She had woken up evidently in her usual state of health and was doing her morning routine began to get some left-sided weakness and developed some speech difficulty. EMS was called on arrival she still was vocalizing and then rapidly deteriorated requiring RSI intubation she arrives here intubated. There is no report of any chest pain prior to this episode. Onset (ago): minute(s) Location: speech, left face, left arm and left leg History of same: No Severity: severe Quality: weak Relieving factors: none Exacerbating factors: none Context: sudden onset On Anticoagulants: No Associated symptoms: Reports no associated symptoms Treatments Prior to Arrival: other (Rapid sequence intubation) Review of Systems General: Reports: ROS unobtainable due to medical condition PFSH ED PFSH: Medical History Colon polyps COPD (chronic obstructive pulmonary disease) Gastroenteritis GERD (gastroesophageal reflux disease) Hypertension Smoker Surgical History History of carpal tunnel surgery Family History Other Hypertension Denies family history of Lung disease Social History Smoking and tobacco status: former smoker Alcohol intake: current Alcohol type: beer Household members: family Housing: House NIH stroke score NIHSS: If Intubated/Physcial Barrier - Explain: Patient intubated on arrival Physical Exam HENMT: COMMON NORMALS: normocephalic and atraumatic HEAD & SCALP: normocephalic and atraumatic Eye: OTHER: Pupils fixed and sluggish with little reaction Resp: COMMON NORMALS: normal respiratory effort, No retractions, No use of accessory muscles and clear to auscultation bilaterally AUSCULTATION: clear to auscultation bilaterally Cardio: COMMON NORMALS: regular rate, regular rhythm and No murmurs present (Cardio) RATE: regular rate RHYTHM: regular rhythm GI: COMMON NORMALS: Soft to palpation and No hepatosplenomegaly present AUSCULTATION: Yes normoactive bowel sounds PALPATION: Yes Soft to palpation, No Tenderness to palpation present (GI), No Guarding due to palpation present (GI) and Yes No hepatosplenomegaly present Extremity: COMMON NORMALS: no pedal edema Skin: COMMON NORMALS: no rashes or lesions noted GENERAL SKIN EXAM: no rashes or lesions noted Course Vital Signs: Vital signs: Vital Signs Temperature 97.1 F L 12/08/20 09:37 Pulse Rate 0 L 12/08/20 18:33 Respiratory Rate 16 12/08/20 15:07 Blood Pressure 122/68 12/08/20 15:07 Pulse Oximetry 50 L 12/08/20 15:07 MDM - Neuro Symptoms/Deficit MDM Narrative: Medical decision making narrative: Patient is large intraparenchymal bleed blood extending into the ventricles and layering. Discussed with the family multiple times she has an extremely poor prognosis discussed with neurology in [place] the neurosurgeon states they would not undertake any intervention her prognosis is still poor would not likely to affect the outcome. Discussed this with the family on multiple different conversations over time ultimately they agreed to comfort cares which I think is appropriate in her particular condition. Discussed Dr. Dockery will admit for comfort cares on second floor. Patient was terminally extubated in the emergency room she did vomit x1 shortly after extubation. After that she had continuous agonal respirations and was discharged position to the floor for continued comfort care Lab Data: Labs: Lab Results 12/08/20 12/08/20 12/08/20 09:20 09:36 09:36 WBC 7.9 10^3/uL 10^3/ uL (4.0-10.0) RBC 4.73 10^6/uL 10^6 /uL (4.1-5.3) Hgb 14.1 g/dL g/dL (11.5-15.3) Hct 43.8 % % (37.0-47.0) MCV 92.6 fl fl (81-99) MCH 29.8 pg pg (28.0-34.0) MCHC 32.2 g/dL g/dL (30.0-36.0) RDW 12.3 % % (12.1-15.1) Plt Count 284 10^3/cmm 10^3 /cmm (130-400) MPV 9.8 fL fL (7.4-10.4) Neut % (Auto) 51.1 % % Lymph % (Auto) 39.6 % % Nicholas % (Auto) 6.5 % % Eos % (Auto) 1.8 % % Baso % (Auto) 0.5 % % Neut # (Auto) 4.01 10^3/uL 10^3 /uL (1.8-7.7) Lymph # (Auto) 3.1 10^3/uL 10^3/ uL (0.8-4.8) Nicholas # (Auto) 0.5 10^3/uL 10^3/ uL (0.2-0.9) Eos # (Auto) 0.1 10^3/uL 10^3/ uL (0.0-0.8) Baso # (Auto) 0.0 10^3/uL 10^3/ uL (0.0-0.1) Nucleated RBC % (a uto) 0 % % Nucleated RBCs # 0.0 /100WBC /100W BC Specimen Type Arterial Sample Site Brachial, right ABG pH 7.27 L (7.35-7.45) ABG pCO2 50.7 mmHg H mmHg (35-45) ABG pO2 422.0 mmHg H mmHg (80.0-100.0) ABG HCO3 23.2 mmol/L mmol/ L (22-26) ABG O2 Saturation > 100.0 ABG Base Excess -4.1 mmol/L L mmo l/L (-2.0-2.0) Beck Test N/a A-a O2 Gradient 27.4 mmHg H mmHg (5-10) Hematocrit 41.5 % % (37-47) Hgb O2 Saturation 97.9 % % (95-100) Carboxyhemoglobin 1.5 %THgb %THgb (0.4-20.1) Methemoglobin 0.8 % % (0.4-1.5) Total Hemoglobin 13.5 g/dL g/dL (12-16) Sodium 134.0 mmol/L mmol /L (131-143) Potassium 4.2 mmol/L mmol/L (3.5-5.0) Glucose 219.0 mg/dL H mg/ dL (70-115) Ionized Calcium 1.2 mmol/L mmol/L (1.1-1.4) O2 Delivery Device Vent FiO2 100.0 % % Tidal Volume 0.40 PEEP 8.0 cmH20 cmH20 Relations Specialist ID Ed Chloride Carbon Dioxide Anion Gap BUN Creatinine GFR Calculation Calculated Osmolal ity Lactic Acid 0.9 mmol/L mmol/L (0.5-2.2) Calcium Magnesium Total Bilirubin AST ALT Alkaline Phosphata se Creatine Kinase Troponin T Baselin e Total Protein Albumin Globulin Lipase Urine Color Urine Appearance Urine pH Ur Specific Gravit y Urine Protein Urine Glucose (UA) Urine Ketones Urine Blood Urine Nitrate Urine Bilirubin Urine Urobilinogen Ur Leukocyte Elvira ase Urine RBC Urine WBC Ur Squamous Epith Cells Amorphous Sediment Urine Bacteria Hyaline Casts Salicylates Acetaminophen Ethyl Alcohol Serum Ketones 12/08/20 12/08/20 12/08/20 09:36 09:36 09:36 WBC RBC Hgb Hct MCV MCH MCHC RDW Plt Count MPV Neut % (Auto) Lymph % (Auto) Nicholas % (Auto) Eos % (Auto) Baso % (Auto) Neut # (Auto) Lymph # (Auto) Nicholas # (Auto) Eos # (Auto) Baso # (Auto) Nucleated RBC % (a uto) Nucleated RBCs # Specimen Type Sample Site ABG pH ABG pCO2 ABG pO2 ABG HCO3 ABG O2 Saturation ABG Base Excess Beck Test A-a O2 Gradient Hematocrit Hgb O2 Saturation Carboxyhemoglobin Methemoglobin Total Hemoglobin Sodium 133 mmol/L L mmol /L (136-145) Potassium 4.4 mmol/L mmol/L (3.5-5.1) Glucose 196 mg/dL H mg/dL (65-115) Ionized Calcium O2 Delivery Device FiO2 Tidal Volume PEEP Relations Specialist ID Chloride 97 mmol/L L mmol/ L (98-107) Carbon Dioxide 25 mmol/L mmol/L (22-29) Anion Gap 15.4 (5-19) BUN 15 mg/dL mg/dL (8-23) Creatinine 0.5 mg/dL mg/dL (0.5-0.9) GFR Calculation 125.9 mL/min mL/m in (90-130) Calculated Osmolal ity 282 mOsm/kg L mOs m/kg (285-295) Lactic Acid Calcium 9.6 mg/dL mg/dL (8.5-10.5) Magnesium 1.8 mg/dL mg/dL (1.7-2.3) Total Bilirubin 1.0 mg/dL mg/dL (0.15-1.2) AST 26 U/L U/L (0-32) ALT 20 U/L U/L (0-33) Alkaline Phosphata se 113 IU/L H IU/L (35-105) Creatine Kinase 144 U/L U/L (26-192) Troponin T Baselin e 42 ng/L H ng/L (0-10) Total Protein 7.5 g/dL g/dL (6.6-8.7) Albumin 5.0 g/dL g/dL (3.5-5.2) Globulin 2.5 g/dL g/dL (1.3-4.6) Lipase 28 U/L U/L (13-60) Urine Color Urine Appearance Urine pH Ur Specific Gravit y Urine Protein Urine Glucose (UA) Urine Ketones Urine Blood Urine Nitrate Urine Bilirubin Urine Urobilinogen Ur Leukocyte Elvira ase Urine RBC Urine WBC Ur Squamous Epith Cells Amorphous Sediment Urine Bacteria Hyaline Casts Salicylates < 0.3 mg/dL L mg/ dL (3-10) Acetaminophen < 5.0 ug/mL L ug/ mL (10-30) Ethyl Alcohol < 10 mg/dL mg/dL (0-10) Serum Ketones Negative (Negative) 12/08/20 10:10 WBC RBC Hgb Hct MCV MCH MCHC RDW Plt Count MPV Neut % (Auto) Lymph % (Auto) Nicholas % (Auto) Eos % (Auto) Baso % (Auto) Neut # (Auto) Lymph # (Auto) Nicholas # (Auto) Eos # (Auto) Baso # (Auto) Nucleated RBC % (a uto) Nucleated RBCs # Specimen Type Sample Site ABG pH ABG pCO2 ABG pO2 ABG HCO3 ABG O2 Saturation ABG Base Excess Beck Test A-a O2 Gradient Hematocrit Hgb O2 Saturation Carboxyhemoglobin Methemoglobin Total Hemoglobin Sodium Potassium Glucose Ionized Calcium O2 Delivery Device FiO2 Tidal Volume PEEP Relations Specialist ID Chloride Carbon Dioxide Anion Gap BUN Creatinine GFR Calculation Calculated Osmolal ity Lactic Acid Calcium Magnesium Total Bilirubin AST ALT Alkaline Phosphata se Creatine Kinase Troponin T Baselin e Total Protein Albumin Globulin Lipase Urine Color Yellow (Yellow) Urine Appearance Hazy A (CLEAR) Urine pH 5 (5-7) Ur Specific Gravit y 1.025 (1.005-1.030) Urine Protein Trace (Negative) Urine Glucose (UA) Norm (Normal) Urine Ketones 1+ H (Negative) Urine Blood Neg (Negative) Urine Nitrate Negative (Negative) Urine Bilirubin 1+ H (Negative) Urine Urobilinogen 1 mg/dL H mg/dL (Negative) Ur Leukocyte Elvira ase Negative (Negative) Urine RBC None /hpf /hpf (0-2) Urine WBC Rare /hpf /hpf (0-5) Ur Squamous Epith Cells Rare /hpf /hpf (0-5) Amorphous Sediment Not Reportable Urine Bacteria Trace /hpf /hpf (NONE) Hyaline Casts 0-4 /lpf H /lpf Salicylates Acetaminophen Ethyl Alcohol Serum Ketones Discharge Plan Discharge Patient Disposition: Placed in Observation Admit Provider: Desean Dockery Clinical Impression: Hemorrhagic cerebrovascular accident (CVA), COPD (chronic obstructive pulmonary disease) Coding Level of Care Code ED Oil Expeller for Christian Enrique
[2020-12-08 09:46] LABS: Basophils % 0.5 %; Eosinophils # 0.1 10^3/uL (0.0-0.8); Eosinophils % 1.8 %; Hematocrit 43.8 % (37.0-47.0); Hemoglobin 14.1 g/dL (11.5-15.3); Lymphocytes # 3.1 10^3/uL (0.8-4.8); Lymphocytes % 39.6 %; Mean Corpuscular HGB Conc 32.2 g/dL (30.0-36.0); Mean Corpuscular Hemoglobin 29.8 pg (28.0-34.0); Mean Corpuscular Volume 92.6 fl (81-99); Mean Platelet Volume 9.8 fL (7.4-10.4); Monocytes # 0.5 10^3/uL (0.2-0.9); Monocytes % 6.5 %; Neutrophils # 4.01 10^3/uL (1.8-7.7); Neutrophils % 51.1 %; Nucleated Red Blood Cells % 0 %; Platelet Count 284 10^3/cmm (130-400); Red Blood Count 4.73 10^6/uL (4.1-5.3); Red Cell Distribution Width 12.3 % (12.1-15.1); White Blood Count 7.9 10^3/uL (4.0-10.0)
[2020-12-08 09:58] LABS: Ketone (Acetest) Serum Negative (Negative)
[2020-12-08 10:01] LABS: ABG PCO2 50.7 mmHg (35-45); ABG PH Result 7.27 (7.35-7.45); Arterial Blood Gas Hematocrit 41.5 % (37-47); Base Excess ABG -4.1 mmol/L (-2.0-2.0); Blood Gas Sample Type Arterial; Carboxyhemoglobin 1.5 %THgb (0.4-20.1); HCO3 ABG 23.2 mmol/L (22-26); HGB O2 Sat 97.9 % (95-100); Ionized Calcium Level - ABG 1.2 mmol/L (1.1-1.4); Methemoglobin 0.8 % (0.4-1.5); Oxygen Saturation ABG > 100.0; Potassium Level - ABG 4.2 mmol/L (3.5-5.0); Total Hemoglobin 13.5 g/dL (12-16)
[2020-12-08 10:02] LABS: Alveolar-Arterial Oxygen Gradi 27.4 mmHg (5-10); Blood Gas Operator Identificat ED; Blood Gas Sample Site Brachial, right; Oxygen Device VENT
--- NOTE | 2020-12-08 10:04 | XR_ITS ---
WS: [id number] XR chest 1V portable [id number] REASON FOR EXAM: OG/ tube placement FINDINGS: Compared to the previous examination of this same day, the endotracheal tube as been retracted and now lies at the level of the aortic arch. A nasogastric tube has been placed. The tip is beyond the fundus of the stomach. No other significant abnormality or interval change. XR/XR chest 1V portable [id number] IMPRESSION: Tube placements as above. No acute pulmonary abnormality identified.
[2020-12-08 10:08] LABS: Lactic Sepsis W/Reflex 0.9 mmol/L (0.5-2.2)
[2020-12-08 10:13] LABS: Alanine Aminotransferase 20 U/L (0-33); Alkaline Phosphatase 113 IU/L (35-105); Aspartate Amino Transferase 26 U/L (0-32); Blood Urea Nitrogen 15 mg/dL (8-23); Calcium 9.6 mg/dL (8.5-10.5); Carbon Dioxide 25 mmol/L (22-29); Chloride 97 mmol/L (98-107); Creatine Phosphokinase 144 U/L (26-192); Globulin 2.5 g/dL (1.3-4.6); Glomerular Filtration Rate 125.9 mL/min (90-130); Glucose 196 mg/dL (65-115); Lipase 28 U/L (13-60); Magnesium 1.8 mg/dL (1.7-2.3); Osmolality Calculated 282 mOsm/kg (285-295); Sodium 133 mmol/L (136-145); Total Protein 7.5 g/dL (6.6-8.7)
[2020-12-08 10:14] LABS: Troponin(5th) Baseline 42 ng/L (0-10)
[2020-12-08 10:15] LABS: Acetaminophen < 5.0 ug/mL (10-30); Alcohol Level < 10 mg/dL (0-10); Anion Gap 15.4 (5-19); Potassium 4.4 mmol/L (3.5-5.1); Salicylate < 0.3 mg/dL (3-10)
--- NOTE | 2020-12-08 10:22 | PC.NURSE ---
Patient placed on cardiac monitoring upon arrival in room
[2020-12-08 11:21] LABS: Protein Urine Trace (Negative); Specific Gravity, Urine 1.025 (1.005-1.030); Urine Appearance Hazy (CLEAR); Urine Color Yellow (Yellow); pH Urine 5 (5-7)
[2020-12-08 11:22] LABS: Add Urine Microscopic? YES; Bacteria Urine TRACE /hpf; Bilirubin Urine 1+ (Negative); Blood Urine Neg (Negative); Glucose Urine UA Norm (Normal); Hyaline Casts Urine 0-4 /lpf; Ketones Urine 1+ (Negative); Leukocyte Esterase Urine Negative (Negative); Nitrate Urine Negative (Negative); Squamous Epithelial Cell Urine RARE /hpf (0-5); Urobilinogen Urine 1 mg/dL (Negative); WBC Urine RARE /hpf (0-5)
--- NOTE | 2020-12-08 12:22 | PC.PHAR ---
PT UNABLE TO VERIFY MEDICATIONS-MEDICATIONS ENTERED ARE MEDS THAT MAYI GRESHAM HAS FILLED RECENTLY-ASPIRIN WAS ON A PREVIOUS ENTERED MED LIST
[2020-12-08 13:07] LABS: Troponin 5 2HR 189.6 ng/L (0-10); Troponin 5 2HR Delta 147.6 ABS# (0-10)
--- NOTE | 2020-12-08 13:54 | PM.HP ---
Providers/Chief Complaint Primary Care Provider: Emiliana Ramey DO Chief Complaint: POSS STROKE, PT INTUBATED History of Present Illness Latesha Piper is a 60 year old female who presented to the emergency department via EMS. She was intubated in the field for unresponsiveness. There was concern from EMS that she may have had a CVA. Further history is not available when I evaluated the patient. The emergency department has called me requesting comfort measures in the hospital as patient has been identified to have a large intracranial hemorrhage, likely hemorrhagic right basal ganglia CVA with extension into ventricles. After an extended conversation between the emergency department physician and family, family requested patient be made comfort and she was extubated in the emergency department. Review of Systems General: Reports: ROS unobtainable due to mental status (Unresponsive) Medications/Allergies Home Medications Medication Instructions Recorded Confirmed Last Taken Type albuterol sulfate 90 mcg/actuation 2 puff INHALATION Q6H PRN #8.5 gm 07/09/19 12/08/20 07/16/20 10:00 Rx aerosol inhaler aspirin [Aspirin Low Dose] 81 mg PO DAILY 08/09/19 12/08/20 07/14/20 History amlodipine 5 mg tablet 5 mg PO DAILY 06/12/20 12/08/20 07/16/20 09:00 History lisinopril 20 mg tablet 20 mg PO DAILY 06/12/20 12/08/20 07/16/20 09:00 History hydroxyzine HCl 10 mg PO TID PRN 07/14/20 12/08/20 07/16/20 09:00 History Allergies Allergy/AdvReac Type Severity Reaction Status Date / Time No Known Allergies Allergy Verified 08/02/20 10:11 PFSH Acute PFSH: Medical History Colon polyps COPD (chronic obstructive pulmonary disease) Gastroenteritis GERD (gastroesophageal reflux disease) Hypertension Smoker Surgical History History of carpal tunnel surgery Family History Other Hypertension Denies family history of Lung disease Social History Smoking and tobacco status: former smoker Alcohol intake: current Alcohol type: beer Household members: family Housing: House Vitals/I&O/Wt Last Vital Signs Temp 97.1 F L 12/08/20 09:37 Pulse 138 H 12/08/20 10:16 Resp 18 12/08/20 11:42 BP 118/96 12/08/20 10:16 Pulse Ox 100 12/08/20 10:16 12/07/20 12/08/20 12/08/20 22:59 06:59 14:59 Intake Total 9.791 / 9.791 Balance 9.791 / 9.791 Weight last 48 hrs Weight 61.099 kg Physical Exam Narrative: EXAM NARRATIVE: General exam is an unresponsive female with agonal breathing HEENT: Pupils round. Gaze is not conjugate. Oropharynx clear Neck supple, no lymphadenopathy or thyromegaly Cardiovascular tachycardic, regular Lungs clear no wheezing or crackles Abdomen is soft nontender with positive bowel sounds Extremities no cyanosis clubbing or edema Neurologic: Unresponsive, disconjugate gaze Skin no rash Urinary Catheter Management^: Burns: Cath Placed During This Visit: yes Urinary Catheter Date of Insertion: 12/08/20 Urinary Catheter Time of Insertion: 10:20 Data : 12/08/20 09:36 12/08/20 09:36 Micro: Microbiology 12/08/20 09:38 Blood Culture - Preliminary Blood SPECIMEN COLLECTED 12/08/20 09:36 Blood Culture - Preliminary Blood SPECIMEN COLLECTED Other data: Chest x-ray with adequate endotracheal and orogastric tube placement. No infiltrate. CT head demonstrates large amounts of intraventricular hemorrhage and hemorrhagic right basal ganglia CVA with extension into the ventricles. EKG demonstrates sinus tachycardia, normal axis, nonspecific ST-T wave changes. ABG on the ventilator demonstrated pH 7.27, PCO2 51, PO2 422 on 100% FiO2 8 of PEEP Troponin baseline 42 with repeat 190 LFTs normal with exception of alk phos of 113 Urinalysis negative Salicylate, acetaminophen level, alcohol level and ketones all negative. A&P Assessment and plan (1) Hemorrhagic cerebrovascular accident (CVA): On CT hemorrhagic right basal ganglia stroke with extension into ventricles with large amount of intraventricular hemorrhage. Patient is nonresponsive. Currently with agonal respirations after extubation. Family wishes for comfort measures to ensue. These have been initiated by the emergency department physician. They will be continued on the floor. She does appear comfortable currently. 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
[2020-12-08] MEDS: LORazepam 2 mg/mL INJ 1 mL IVP (14:19)
[2020-12-08] MEDS: morphine 4 mg/mL SDV 1 mL IVP (14:25)
[2020-12-08] MEDS: ondansetron 2 mg/ML SDV 2 mL 4 MG IVP (14:29)
--- NOTE | 2020-12-08 15:34 | PC.NURSE ---
IV Waste 96 mL of Versed and 94mL of fentanyl IV bag were wasted into pharmacy black box and witnessed by Franky BARBOUR.
--- NOTE | 2020-12-08 16:00 | PC.NURSE ---
PATIENT PASSED AT [id number] ON 12-08-20. VERIFIED BY ALIX BARBOUR AND JACQUI BARBOUR. PATIENT'S COUSIN AND IDALMIS AT BEDSIDE. SON AND MOTHER NOTIFIED VIA PHONE CALL BY ALIX BARBOUR. SON CAME AND SIGNED BODY RELEASE FORM. POST MORTEM CARE PERFORMED. PATIENT THEN TAKEN BY BRAND EXECUTIVE DIANA TO THE [facility] [place]. BODY RELEASE FORM SENT WITH DIANA BARBOUR.
--- NOTE | 2020-12-09 11:08 | PM.DDS ---
Discharge Providers DDS Date of Admission: 12/08/20 12:14 Date Summary Completed: 12/09/20 Attending Provider at Admission: Desean Dockery MD Time of : 15:37 Attending Provider at Discharge: Desean Dockery MD Primary Care Provider: Emiliana Ramey DO DS Diagnoses Hospital Diagnoses (1) Hemorrhagic cerebrovascular accident (CVA): Reason for Visit Reason for Visit: POSS STROKE, PT INTUBATED Summary Date and Time of Date of : 12/08/20 Time of : 15:37 Summary Summary: Mrs. Piper was a 60-year-old white female who was brought into the emergency department intubated. She was found to have a right basal ganglia hemorrhagic CVA with large amount of intraventricular hemorrhage. The emergency department physician discussed extensively with the family and she was made comfort in the emergency department and terminally extubated in the emergency department. Agonal type breathing was noted following extubation. Comfort orders were continued with transfer to the second floor where she shortly after. Additional Data Advance directives?: No Hospice patient?: No Discharge Plan Discharge Patient Disposition: Prescriptions: No Action amlodipine 5 mg tablet 5 mg PO DAILY RF: 0 lisinopril 20 mg tablet 20 mg PO DAILY RF: 0 albuterol sulfate [ProAir HFA] 90 mcg/actuation HFA aerosol inhaler 2 puff INHALATION Q6H PRN (Reason: shortness of breath or wheezing) Qty: 8.5 RF: 0 aspirin [Aspirin Low Dose] 81 mg Tablet,Delayed Release (Dr/Ec) 81 mg PO DAILY RF: 0 Hold Instructions: Resume on 07/19/20. hydroxyzine HCl 10 mg Tablet 10 mg PO TID PRN (Reason: Anxiety) RF: 0 DS Attestations Time Spent in /Discharge Care*: less than 30 min Quality - AMI: AMI present?: No Quality - Stroke: CVA present?: Yes Quality - VTE: VTE present?: No Coding Level of Care Code Acute Theatrical Agent for g Fwd Diagnoses Hemorrhagic cerebrovascular accident (CVA) I61.9
== END 2020-12-08 18:00 | disposition expired ==
LOC: ER 09:30 → MEDSURG 14:16
PROVIDERS: Admitting Provider Internal Medicine; Emergency Provider Family Medicine; PCP Internal Medicine; Visit Provider Internal Medicine
DX: I61.9 Nontraumatic intracerebral hemorrhage, unspecified (principal); J44.9 Chronic obstructive pulmonary disease, unspecified; K21.9 Gastro-esophageal reflux disease without esophagitis; I10 Essential (primary) hypertension; Z82.49 Family history of ischemic heart disease and other diseases of the circulatory system; Z87.891 Personal history of nicotine dependence
CPT/HCPCS: 51702; 70450; 71045; 80051; 80053; 80307; 81001; 82009; 82330; 82550; 82805; 83605; 83690; 83735; 84484; 85025; 87040; 87070; 87205; 93005; 94002; 94799; 96365; 96375; 99291; 99292; G0378; J2060; J2250; J2270; J2405; J3010